=== PATIENT | male | born 1950 | race Caucasian/White ===

== ENCOUNTER 2018-01-24 16:07 | Observation (INO) | payer MEDICARE ==
[2018-01-24] MEDS ORDERED: ASPIRIN 81 MG CHEWABLE TABLET PO ONE (16:25)
[2018-01-24] MEDS ORDERED: 0.9 % SODIUM CHLORIDE 1000ML 1,000 ML IV PRN (16:25)
--- NOTE | 2018-01-24 16:36 | Emergency Department Record ---
History of Present Illness - General Chief Complaint: Abdominal Pain Stated Complaint: STOMACHE PAIN/LT ARM ACHE Time Seen by Provider: 01/24/18 16:13 Source: Patient Mode of Arrival: Ambulatory Limitations: No limitations - History of Present Illness Initial Comments: Pt from home where he was outdoors using a hoe in his garden. He felt sudden pain in his mid upper abdomen and pain with "heaviness" to his left arm. he had no CP, JENNIFER, nausea, or diaphoresis. Pt has hx of GA 3 years ago with stent placed at that time. Hx HTN, no DM. Non smoker. Hx of issues with "gastritis " treated over the past year. Now AP is resolved and arm is at a 2 of 10 pain. Max at home was a 6 of 10. No recent illness, fever, cough. Onset/Timin -: Hour(s) Location: Epigastric Radiation: None Migration to: No migration Severity: Mild Severity scale (1-10): 6 Quality: Aching Consistency: Constant Improves With: Nothing Worsens With: Nothing Associated Symptoms: Other (left arm pain) - Related Data Allergies Allergy/AdvReac Type Severity Reaction Status Date / Time Egg Derived Allergy Unknown HYPERSENSIT Verified 07/04/16 15:34 IVITY Travel Screening - Travel/Exposure Within Last 30 Days Have you traveled within the last 30 days?: No Review of Systems Constitutional: Denies: Chills, Fever Eyes: Denies: Eye pain, Vision change ENT: Denies: Congestion, Throat pain Respiratory: Denies: Cough, Dyspnea, Hemoptysis Cardiovascular: Denies: Arrhythmia, Chest pain, Edema Endocrine: Denies: Fatigue Gastrointestinal: Reports: As per HPI. Denies: Diarrhea, Nausea, Vomiting Genitourinary: Denies: Dysuria, Frequency Musculoskeletal: Denies: Arthralgia Skin: Denies: Bruising, Rash Neurological: Denies: Abnormal gait, Headache, Tingling Psychiatric: Denies: Anxiety Hematological/Lymphatic: Denies: Anemia Past Medical History - SOCIAL HISTORY Smoking Status: Former smoker - RESPIRATORY Hx Respiratory Disorders: Yes Hx Bronchitis: Yes - CARDIOVASCULAR Hx Cardio Disorders: Yes Hx Hypertension: Yes - NEURO Hx Neuro Disorders: No - GI Hx GI Disorders: No - Hx Genitourinary Disorders: No - ENDOCRINE Hx Diabetes: No Hx Thyroid Disease: No - MUSCULOSKELETAL Hx Musculoskeletal Disorders: Yes Hx Arthritis: Yes - PSYCH Hx Psych Problems: No - HEMATOLOGY/ONCOLOGY Hx Hematology/Oncology Disorders: No Family Medical History Any Significant Family History?: No Physical Exam - General General Appearance: Alert, Oriented x3, Cooperative, No acute distress - Head Head exam: Atraumatic Head exam detail: Abrasion - Eye Eye exam: Normal appearance, PERRL, EOMI. negative: Nystagmus - ENT ENT exam: Normal exam, Mucous membranes moist, Normal external ear exam, Normal orophraynx, TM's normal bilaterally - Neck Neck exam: Normal inspection. negative: Thyromegaly - Respiratory Respiratory exam: Normal lung sounds bilaterally. negative: Rhonchi, Wheezes - Cardiovascular Cardiovascular Exam: Regular rate, Normal rhythm. negative: Diastolic murmur, Irregular rhythm, Systolic murmur - GI/Abdominal GI/Abdominal exam: Soft, Normal bowel sounds. negative: Guarding, Mass, Rebound (MIld upper mid abd pain to deep palation. ), Rigid - Rectal Rectal exam: Deferred - exam: Deferred - Extremities Extremities exam: Normal inspection. negative: Tenderness - Back Back exam: Reports: Normal inspection - Neurological Neurological exam: Alert, Normal gait, Oriented X3 - Psychiatric Psychiatric exam: Normal affect, Normal mood - Skin Skin exam: Normal color. negative: Rash Course Vital Signs 01/24/18 16:16 Temperature 98.5 F Pulse Rate [ 88 Pulse Ox Probe] Respiratory 16 Rate Blood Pressure 149/111 [Left Arm] Pulse Ox 96 - Reevaluation(s) Reevaluation #1: 01/24/18 18:37 Pt without AP at this time. Labs normal including Trop. D Dimer elevated byut CTA neg for PE> Continues to have L arm pain. 01/24/18 18:41 Dr. Walker not available. Spoke with Dr. Loyd and accepts. Procedures - EKG Initial Date: 01/24/18 ( ) Time: 16:31 EKG: No Acute Changes (no change from 16) Medical Decision Making - Lab Data Result diagrams: 01/24/18 16:35 01/24/18 16:35 Disposition Disposition: Admit Clinical Impression: Anginal equivalent, Arm pain, left Disposition: Still a Patient at [facility] Decision to Admit: Admit from ER Decision to Admit Date: 01/24/18 Decision to Admit Time: 18:42 Condition: (3) Guarded Forms: Patient Portal Access Time of Disposition: 18:42 Quality - Quality Measures Quality Measures: N/A - Blood Pressure Screening View Details: Yes Does Patient Have Any of the Following: Active Dx of HTN Blood Pressure Classification: Normal BP Reading Systolic Measurement: 109 Diastolic Measurement: 71 Screening for High Blood Pressure: Patient Exclusion, Hx of HTN [G9744]
[2018-01-24 16:40] LABS: BASO % 0.2 % (0-6); EOS % 1.6 % (0-6); HEMATOCRIT 47.4 % (42.0-52.0); HEMOGLOBIN 16.4 gm/dl (14.0-18.0); LYMPH % 15.9 % (16-45); MEAN CELL VOLUME 91.2 fl (81-97); MEAN CORPUSCULAR HEMOGLOBIN 31.5 pg (27-33); MEAN CORPUSCULAR HGB CONC 34.6 g/dl (32-36); MEAN PLATELET VOLUME 9.4 fl (7.4-10.4); MONO % 11.3 % (0-9); PLATELET COUNT 256 K/uL (130-400); RED CELL DISTRIBUTION WIDTH 12.2 % (11.5-14.5); WHITE BLOOD COUNT W/O DIFF 8.6 K/uL (4.2-12.2)
[2018-01-24 16:49] LABS: BLOOD UREA NITROGEN 16 mg/dL (8-23); CREATININE 0.9 mg/dL (0.7-1.2); EST GLOMERULAR FILTRATION RATE > 60 mL/min
[2018-01-24 16:50] LABS: TOTAL PROTEIN 6.4 g/dL (6.6-8.7)
[2018-01-24 16:52] LABS: GLUCOSE,RANDOM 97 mg/dL (74-109)
[2018-01-24 16:54] LABS: PARTIAL THROMBOPLASTIN TIME 27.8 SECONDS (24.5-39.1); PROTHROMBIN TIME (PATIENT) 10.9 SECONDS (9.5-12.1)
[2018-01-24 16:55] LABS: ALBUMIN 4.3 g/dL (4.0-5.0); ALKALINE PHOSPHATASE 54 U/L (40-129); ALT/SGPT 31 U/L (<41); AST/SGOT 21 U/L (10.0-50.0)
[2018-01-24] MEDS ORDERED: NITROGLYCERIN 0.4MG SL TABLET #25 BTL SL ONE (17:22)
[2018-01-24 17:23] LABS: URINE APPEARANCE CLEAR; URINE BILIRUBIN NEGATIVE (NEGATIVE); URINE BLOOD NEGATIVE (NEGATIVE); URINE COLOR YELLOW; URINE GLUCOSE (UA) NEGATIVE (NEGATIVE); URINE KETONE NEGATIVE (NEGATIVE); URINE LEUKOCYTE ESTERASE NEGATIVE (NEGATIVE); URINE NITRITE NEGATIVE (NEGATIVE); URINE PROTEIN NEGATIVE (NEGATIVE); URINE UROBILINOGEN 0.2 E.U./dL (0.20 - 1.00)
[2018-01-24] MEDS: CARVEDILOL 3.125 MG TABLET PO SCH (22:14)
--- NOTE | 2018-01-25 07:44 | CT ANGIOGRAM REPORT ---
EXAM: CT ANGIOGRAM OF THE CHEST HISTORY: LEFT ARM PAIN. TACHYCARDIA. DIZZINESS. TECHNIQUE: Standard CT angiographic technique with IV contrast of the chest was completed with coronal and sagittal post processed images. Comparison: None. Encounter: Initial. FINDINGS: The mediastinum displays atherosclerosis of the aorta. I do not see evidence of aortic dissection. No evidence of aortic aneurysm. The pulmonary arteries are borderline prominent proximally. A degree of pulmonary artery hypertension is not excluded. The pulmonary arteries are well opacified. I do not see filling defect. No contrast, disruption is identified. No evidence to suggest pulmonary embolism is seen. The heart is borderline prominent. I do not see evidence of right heart strain. No abnormal pericardial fluid collections are identified. Small hilar lymph nodes are seen. Advanced coronary artery atherosclerotic disease is identified. The lungs display likely evidence of mild emphysematous disease. Basilar areas of atelectasis. I do not see evidence of pneumothorax. No gross lobar infiltrates or large effusions. There is a tiny 3 mm lung nodule in the region of the right middle lobe. Small likely calcified granuloma in the posterior right lung field. The right middle lobe lung nodule could also be a small calcified nodule, it is somewhat too small to accurately characterize. As follows there is an irregular density in the left upper lobe measuring about 8 mm in size adjacent to one of the pulmonary arteries. This could represent a small pulmonary nodule. Minimal pleural areas of calcification. No suspicious lung nodule or mass lesion. The upper abdomen displays no acute process. Axillary regions of the chest wall and visualized portions of the thyroid gland appear intact. The spinal column displays degenerative disease. No gross bony destructive process. IMPRESSION: 1. I DO NOT SEE EVIDENCE OF PULMONARY ARTERY EMBOLISM AND NO EVIDENCE OF AORTIC DISSECTION. SEVERE CORONARY ARTERY DISEASE IS IDENTIFIED. 2. THE LUNGS DISPLAY EMPHYSEMATOUS LUNG DISEASE. THE PULMONARY ARTERIES ARE BORDERLINE PROMINENT AND MAY REPRESENT A DEGREE OF PULMONARY ARTERY HYPERTENSION. NO INFILTRATES OR LARGE EFFUSIONS. 3. THERE IS AN 8 MM LEFT UPPER LOBE PULMONARY NODULE. EARLY MALIGNANCY IS NOT COMPLETELY EXCLUDED. THREE MONTH MONTH FOLLOW-UP IS RECOMMENDED. OTHER SMALL RIGHT LUNG PULMONARY NODULES LIKELY BENIGN ONLY MEASURING UPWARDS OF ABOUT 3 MM IN SIZE. 4. MILD BRONCHIAL THICKENING WITH EMPHYSEMATOUS CHANGES. THIS MAY REPRESENT CHRONIC BRONCHITIS. A DEGREE OF ACUTE INFLAMMATORY PROCESS IS NOT COMPLETELY EXCLUDED. 5. OTHER CHRONIC CHANGES ABOVE. NO OTHER ACUTE PROCESS IDENTIFIED. JOB NUMBER: [id number] [facility]
[2018-01-25] MEDS: PANTOPRAZOLE SODIUM 40 MG TABLET PO SCH ×2 (07:59→10:01)
[2018-01-25] MEDS ORDERED: LISINOPRIL 5 MG TABLET PO SCH (10:00)
[2018-01-25] MEDS ORDERED: ASPIRIN 81 MG TABEC PO SCH (10:00)
[2018-01-25] MEDS ORDERED: ATORVASTATIN 20 MG TABLET PO SCH (10:00)
[2018-01-25] MEDS: CARVEDILOL 3.125 MG TABLET PO SCH (10:04)
--- NOTE | 2018-01-25 10:41 | Discharge Note ---
VTE H&P Assessment - Risk for VTE Risk for VTE: No Risk Level: Very Low Risk Assessment Date: 01/25/18 Risk Assessment Time: 10:41 VTE Orders Placed or Will Be Placed: No VTE Reason for No Prophylaxis: Not Indicated (patient going home) Discharge Medications - Discharge Medications Prescriptions: Naproxen [Naprosyn] 500 mg PO BID #20 tablet Home Medications: Ambulatory Orders Aspirin 81 mg PO DAILY tab.chew 08/18/15 [Last Taken 1 Day Ago ~07/03/16] Atorvastatin Calcium 40 mg PO DAILY tab 08/18/15 [Last Taken 1 Day Ago ~] Carvedilol 3.125 mg PO BID tab 08/18/15 [Last Taken 1 Day Ago ~07/03/16] Nitroglycerin 0.4 mg SL Q5MIN PRN 08/18/15 [Last Taken 1 Day Ago ~07/03/16] Lisinopril [Zestril] 10 mg PO DAILY 08/22/15 [Last Taken 1 Day Ago ~07/03/16] Omeprazole 20 mg PO DAILY cap 10/17/15 [Last Taken 1 Day Ago ~07/03/16] Naproxen [Naprosyn] 500 mg PO BID #20 tablet 01/25/18 [Last Taken Unknown] Discharge Note - Date Date of Discharge Note: 01/25/18 Condition: (3) Guarded Additional Instructions: follow up with Dr. Walker in 5 days on tuesdayJanuary 29 naprosyn twice a day for his left wrist pain follow up with Dr. Lyles in 1-2 weeks for a stress test activity walking only till his stress test is done Forms: Patient Portal Access
--- NOTE | 2018-01-25 12:31 | Discharge Summary ---
DATE: 01/25/2018 DISCHARGE DIAGNOSES: 1. Atypical chest pain. 2. Myocardial infarction ruled out. 3. Coronary artery disease. 4. Musculoskeletal left arm pain, left wrist pain, most likely from hoeing. 5. An incidental pulmonary nodule found on CTA which was negative for pulmonary embolism. D-dimer was slightly elevated. Will follow up with a 3-month CT scan. 6. History of hypertension. 7. History of hypercholesterolemia. 8. History of gastroesophageal reflux disease. ATTENDING PHYSICIAN: Jeffrey Walker DO REASON FOR HOSPITALIZATION: This patient was seen in the emergency department by Dr. Irizarry with epigastric discomfort which lasted for about 30 minutes which was gone upon arrival to the ER. He has had some left arm pain which was sharp in nature, reproducible with palpation of the wrist and movement of the arm. He was admitted to the hospital for serial cardiac enzymes because of his previous history of an IA about 2-3 years ago. SIGNIFICANT FINDINGS: Cardiac enzymes x3 were negative. Troponin Ts and EKG showing no acute changes. There was some T-wave inversion and I and aVL, V4, V5, and V6 which was similar to previous EKGs done in 2015 and 2016. His CTA because of a D-dimer was slightly elevated in the emergency department was negative for PE but did show an incidental 8 mm nodule which will need a followup CT to determine stability and possible further evaluation. HOSPITAL COURSE: He has been pain free. No chest pain. Does have left wrist pain on palpation and movement of his forearm. CONDITION ON DISCHARGE: Improved. DISCHARGE INSTRUCTIONS: Follow up with Dr. Walker in 5 days. Follow up with Dr. Lyles, his finance and administration manager, in 1 week for a stress test. Only walking exercise until he has had his stress test done. Continue his home medications. JO ANN
--- NOTE | 2018-01-25 12:31 | History and Physical Report ---
DATE: 01/25/2018 at 10 a.m. CHIEF COMPLAINT: Chest pain, left arm pain. HISTORY OF PRESENT ILLNESS: This 67-year-old male was working in the [employer]. The temperature was 90 degrees outside. He went inside. He developed some nausea, epigastric discomfort, and also some left arm pain which he said was sharp radiating down the left arm. Currently at my examination, he was still having some left wrist pain worse with palpation. He also had left forearm pain with palpation and no chest pain at this time. He was seen in the emergency department by Dr. Irizarry and admitted to the hospital for serial cardiac enzymes. His scarrer is Dr. Jessee Lyles out of [place] through the [facility]. He has not seen a scarrer in a couple of years. He said he is doing well. He had an OH 3 years ago. He also had a CTA in the emergency department because his D-dimer was slightly elevated. No signs of a PE. There is a pulmonary nodule which requires a 3-month followup according to the radiologist. It is 8 mm in size. Indeterminate as to what it is. His EKG showing no acute changes in the emergency department and his repeat EKG had T-wave inversions in I and aVL, which is similar to a previous EKG with V4, V5, and V6 had T-wave inversions, which is also similar to the EKG in 2016. Cardiac enzymes were normal x3 and he is not having any chest pain at this time. PAST MEDICAL HISTORY: Hypercholesterolemia, hypertension, coronary artery disease, GERD. He is an ex-smoker, stopped in 1999. He has arthritis. PAST SURGICAL HISTORY: Appendectomy, cholecystectomy, tonsil and adenoid and sinus surgery. MEDICATIONS: 1. Omeprazole 20 mg daily. 2. Nitroglycerin sublingual p.r.n. 3. Lisinopril 10 mg daily. 4. Carvedilol 3.125 b.i.d. 5. Lipitor 40 mg daily. 6. Aspirin 81 mg daily. ALLERGIES: EGGS. FAMILY/PSYCHOSOCIAL HISTORY: Unremarkable. REVIEW OF SYSTEMS: HEENT: No upper respiratory infection symptoms, cough, cold, or congestion. Cardiovascular: See chief complaint. He has coronary artery disease with previous OH 2-3 years ago. Respiratory: He was a smoker. He has some signs of COPD. He has an abnormal CTA with a pulmonary nodule 8 mm and needs a followup CT in 3 months. Gastrointestinal: He had some nausea and epigastric discomfort that lasted about 15 minutes after working outside in the yard. Genitourinary: No dysuria, hematuria, frequency, or burning on urination. Musculoskeletal: He does have arthritis in joints, back especially. Neurological: No CVA, paralysis, or paresthesias. Endocrine: No diabetes or thyroid disease. Integument: No rash, ulcers, change in moles, or yellow skin. PHYSICAL EXAMINATION: VITALS: Height 5 feet 10 inches, weight 208 pounds. Currently temperature 97.6, pulse 65, blood pressure 114/69, respiratory rate 17, pulse ox 98% on room air. HEENT: Pupils are equal, round, and reactive to light and accommodation. Extraocular muscles are intact. Throat is clear. Nose is clear. Tympanic membranes are armstrong. NECK: Supple. No jugular venous distention. No hepatojugular reflux. No carotid bruits. Thyroid is smooth. CARDIOVASCULAR: Regular rate and rhythm without murmurs, clicks, rubs, or gallops. RESPIRATORY: Clear to auscultation and percussion. ABDOMEN: Soft, nontender. No hepatosplenomegaly, no masses, no tenderness. Bowel sounds are active. EXTREMITIES: No pitting edema. No cyanosis, no clubbing. Full range of motion. Peripheral pulses are good. BREASTS: Normal male breasts. RECTAL: Exam deferred. GENITALIA: Deferred. NEUROLOGIC: Cranial nerves II-XII intact. No gross defects. Sensation normal, strength normal. Deep tendon reflexes equal bilaterally with Babinski negative. MENTAL STATUS: Alert and oriented x3. IMPRESSION: 1. Epigastric pain with left arm pain. 2. History of coronary artery disease. 3. Myocardial infarction ruled out by cardiac enzymes and EKGs. 4. Left arm musculoskeletal pain in the left wrist and left forearm, most likely secondary from hoeing. 5. History of hypertension. 6. History of hypercholesterolemia. 7. History of gastroesophageal reflux disease. PLAN: Serial cardiac enzymes were negative. EKGs with no acute changes. We will discharge the patient and have him follow up with Dr. Lyles at the cardiology group at [facility] in the next week to have a stress test done. Will follow up in the office on Tuesday to determine if any other problems develop and to follow up on his pulmonary nodule. The patient is to follow up in the emergency department if he has more problems. JO ANN
== END 2018-01-25 12:15 | disposition home or self-care (01) ==
LOC: ER 16:07 → MEDSURG 19:32
PROVIDERS: ADMIT Emergency Medicine; ATTEND Emergency Medicine
DX: M79.622 Pain in left upper arm (principal); I10 Essential (primary) hypertension; K21.9 Gastro-esophageal reflux disease without esophagitis; I25.2 Old myocardial infarction; E78.00 Pure hypercholesterolemia, unspecified; I25.10 Atherosclerotic heart disease of native coronary artery without angina pectoris; Z87.891 Personal history of nicotine dependence; M19.90 Unspecified osteoarthritis, unspecified site
CPT/HCPCS: 85025; 85730; 85610; 80053; 81003; 84484 ×2; 85379; 71275; 94760; 93005 ×2; 93010 ×2; G0378 ×2; Q9967; 99285

== ENCOUNTER 2018-02-10 17:13 | Emergency (ER) | payer MEDICARE ==
[2018-02-10] MEDS ORDERED: HYOSCYAMINE SULFATE ODT 0.125 MG TAB.SUBL SL ONE (18:07)
[2018-02-10] MEDS ORDERED: KETOROLAC 30 MG/ML VIAL IVP ONE (18:07)
--- NOTE | 2018-02-10 18:11 | Emergency Department Record ---
History of Present Illness - General Chief Complaint: Abdominal Pain Time Seen by Provider: 02/10/18 18:06 Source: Patient Mode of Arrival: Ambulatory Limitations: No limitations - History of Present Illness Initial Comments: 67 yo male presents to ED for evaluation of LLQ pain that began 2 days ago. Patient reports decreased appetite, denies fevers, chills, vomiting, change in stools, or urinary symptoms. Patient denies a history of similar symptoms, does report a previous history of appendectomy and cholecystectomy. MD Complaint: Abdominal pain Onset/Timin -: Days(s) Location: LUQ, LLQ Migration to: No migration Severity scale (1-10): 7 Quality: Aching, Cramping Consistency: Constant Improves With: Nothing Worsens With: Nothing Associated Symptoms: Nausea - Related Data Previous Rx's Medication Instructions Recorded Naproxen [Naprosyn] 500 mg PO BID #20 tablet 01/25/18 Ciprofloxacin HCl [Cipro] 500 mg PO Q12HR #19 tablet 02/10/18 Metronidazole [Flagyl] 500 mg PO TID #29 tablet 02/10/18 Allergies Allergy/AdvReac Type Severity Reaction Status Date / Time Egg Derived Allergy Unknown HYPERSENSIT Verified 07/04/16 15:34 IVITY Travel Screening - Travel/Exposure Within Last 30 Days Have you traveled within the last 30 days?: No - Travel/Exposure Within Last Year Have you traveled outside the [place] in the last year?: No - Additonal Travel Details Have you been exposed to anyone with a communicable illness?: No - Travel Symptoms Symptom Screening: None Review of Systems Constitutional: Denies: Chills, Fever, Malaise, Night sweats Eyes: Denies: Eye discharge, Eye pain ENT: Denies: Congestion, Ear pain, Epistaxis Respiratory: Denies: Cough, Dyspnea Cardiovascular: Denies: Chest pain, Dyspnea on exertion Endocrine: Denies: Fatigue, Heat or cold intolerance Gastrointestinal: Reports: Abdominal pain, Nausea. Denies: Vomiting Genitourinary: Denies: Testicular pain, Testicular mass Musculoskeletal: Denies: Arthralgia, Back pain Skin: Denies: Bruising, Change in color Neurological: Denies: Abnormal gait, Confusion, Headache, Tingling Psychiatric: Denies: Anxiety Hematological/Lymphatic: Denies: Anemia, Blood Clots Past Medical History - SOCIAL HISTORY Smoking Status: Former smoker Alcohol Use: None Drug Use: None - RESPIRATORY Hx Respiratory Disorders: Yes Hx Bronchitis: Yes - CARDIOVASCULAR Hx Cardio Disorders: Yes Hx Heart Attack: Yes Hx Hypertension: Yes Comment:: stents - NEURO Hx Neuro Disorders: No - GI Hx GI Disorders: No - Hx Genitourinary Disorders: No - ENDOCRINE Hx Endocrine Disorders: No Hx Diabetes: No Hx Thyroid Disease: No - MUSCULOSKELETAL Hx Musculoskeletal Disorders: Yes Hx Arthritis: Yes - PSYCH Hx Psych Problems: No - HEMATOLOGY/ONCOLOGY Hx Hematology/Oncology Disorders: No Family Medical History Any Significant Family History?: No Physical Exam - General General Appearance: Alert, Oriented x3, Cooperative, Moderate distress Limitations: No limitations - Head Head exam: Atraumatic, Normocephalic, Normal inspection Head exam detail: negative: Abrasion, Contusion, Blake's sign, General tenderness, Hematoma, Laceration - Eye Eye exam: Normal appearance. negative: Conjunctival injection, Periorbital swelling, Periorbital tenderness, Scleral icterus - ENT Ear exam: negative: Auricular hematoma, Auricular trauma Nasal Exam: negative: Active bleeding, Discharge, Dried blood, Foreign body Mouth exam: negative: Drooling, Laceration, Muffled voice, Tongue elevation - Neck Neck exam: Normal inspection. negative: Meningismus, Tenderness - Respiratory Respiratory exam: Normal lung sounds bilaterally. negative: Respiratory distress, Rhonchi, Stridor, Wheezes - Cardiovascular Cardiovascular Exam: Regular rate, Normal rhythm, Normal heart sounds - GI/Abdominal GI/Abdominal exam: Soft, Tenderness (TTP LLQ on examination, no rebound, guarding, or peritoneal signs on examination.). negative: Rebound, Rigid - Rectal Rectal exam: Deferred - exam: Deferred - Extremities Extremities exam: Normal inspection. negative: Calf tenderness, Pedal edema, Tenderness - Back Back exam: Denies: CVA tenderness (R), CVA tenderness (L) - Neurological Neurological exam: Alert, Normal gait, Oriented X3 - Psychiatric Psychiatric exam: Normal affect, Normal mood - Skin Skin exam: Normal color. negative: Abrasion Type of lesion: negative: abrasion Course Vital Signs 02/10/18 17:14 Temperature 99.4 F Pulse Rate 67 Respiratory 20 Rate Blood Pressure 137/70 Pulse Ox 96 - Reevaluation(s) Reevaluation #1: 02/10/18 19:17 Laboratory studies were reviewed and are grossly unremarkable for an acute process. Awaiting CT imaging for further evaluation of the patient's abdominal pain symptoms. Reevaluation #2: 02/10/18 21:03 CT Abdomen and Pelvis: Findings c/w Sigmoid Diverticulitis DJD No free air or Free fluid present Patient was updated on all results, Cipro and Flagyl ordered in addition to Ofirmev for his returning discomfort symptoms. Patient and his SO verbalize understanding of all instructions, and appear stable for outpatient treatment of diverticulitis. Medical Decision Making - Lab Data Result diagrams: 02/10/18 18:00 02/10/18 18:00 Disposition Disposition: Discharge Clinical Impression: Diverticulitis Disposition: Home, Self-Care Condition: (2) Stable Instructions: Diverticulitis (ED) Additional Instructions: Return to ED if your symptoms worsen or if you have any concerns. Flagyl and Cipro as directed. Follow-up with your family doctor in 3-5 days as directed. Prescriptions: Ciprofloxacin HCl [Cipro] 500 mg PO Q12HR #19 tablet Metronidazole [Flagyl] 500 mg PO TID #29 tablet Forms: Patient Portal Access Time of Disposition: 21:05 Quality - Quality Measures Quality Measures: N/A - Blood Pressure Screening Does Patient Have Any of the Following: No Blood Pressure Classification: Pre-Hypertensive BP Reading Systolic Measurement: 137 Diastolic Measurement: 70 Screening for High Blood Pressure: < Pre-Hypertensive BP, F/U Documented > [ G8950] Pre-Hypertensive Follow-up Interventions: Referral to alternative/primary care provider.
[2018-02-10] MEDS ORDERED: 0.9 % SODIUM CHLORIDE 1000ML 1,000 ML IV SCH (18:15)
[2018-02-10 18:41] LABS: HEMATOCRIT 50.2 % (42.0-52.0); HEMOGLOBIN 17.3 gm/dl (14.0-18.0); MEAN CELL VOLUME 91.4 fl (81-97); MEAN CORPUSCULAR HEMOGLOBIN 31.5 pg (27-33); MEAN CORPUSCULAR HGB CONC 34.5 g/dl (32-36); MEAN PLATELET VOLUME 10.2 fl (7.4-10.4); PLATELET COUNT 254 K/uL (130-400); RED BLOOD COUNT 5.49 M/uL (4.40-5.70); RED CELL DISTRIBUTION WIDTH 12.3 % (11.5-14.5); WHITE BLOOD COUNT W/O DIFF 9.5 K/uL (4.2-12.2)
[2018-02-10 18:54] LABS: PLATELET ESTIMATE NORMAL (NORMAL)
[2018-02-10 18:59] LABS: BLOOD UREA NITROGEN 15 mg/dL (8-23); CREATININE 0.8 mg/dL (0.7-1.2); EST GLOMERULAR FILTRATION RATE > 60 mL/min
[2018-02-10 19:00] LABS: TOTAL PROTEIN 7.3 g/dL (6.6-8.7)
[2018-02-10 19:02] LABS: GLUCOSE,RANDOM 87 mg/dL (74-109)
[2018-02-10 19:05] LABS: ALB/GLOB RATIO 1.8 (1.1-1.8); ALBUMIN 4.7 g/dL (4.0-5.0); ALKALINE PHOSPHATASE 68 U/L (40-129); ALT/SGPT 38 U/L (<41); AST/SGOT 27 U/L (10.0-50.0); LIPASE 38 U/L (13-60)
[2018-02-10 19:15] LABS: URINE APPEARANCE CLEAR; URINE BILIRUBIN NEGATIVE (NEGATIVE); URINE BLOOD NEGATIVE (NEGATIVE); URINE COLOR YELLOW; URINE GLUCOSE (UA) NEGATIVE (NEGATIVE); URINE KETONE NEGATIVE (NEGATIVE); URINE LEUKOCYTE ESTERASE NEGATIVE (NEGATIVE); URINE NITRITE NEGATIVE (NEGATIVE); URINE PROTEIN NEGATIVE (NEGATIVE); URINE UROBILINOGEN 0.2 E.U./dL (0.20 - 1.00)
[2018-02-10] MEDS ORDERED: ACETAMINOPHEN 1,000 MG/100 ML BTL IVPB ONE (20:56)
[2018-02-10] MEDS ORDERED: CIPROFLOXACIN HCL 500 MG TABLET PO ONE (21:02)
[2018-02-10] MEDS ORDERED: METRONIDAZOLE 250 MG TABLET PO ONE (21:02)
--- NOTE | 2018-02-12 19:45 | CT SCAN REPORT ---
EXAM: CT SCAN ABDOMEN/PELVIS W CONTRAST HISTORY: LEFT LOWER QUADRANT PAIN WITH NAUSEA AND LOOSE STOOLS FOR TWO DAYS. PRIOR CHOLECYSTECTOMY AND APPENDECTOMY. TECHNIQUE: Axial CT scan of the abdomen and pelvis performed with IV contrast but without oral contrast at the referring physician's request. Please see the medical record for IV contrast specifics. COMPARISON: CT abdomen and pelvis 10/09/09. FINDINGS: Surgical clips in the gallbladder fossa again seen consistent with cholecystectomy. Appendix not identified consistent with the surgical history as well. No definite, splenic, adrenal, pancreatic, or right renal mass identified. Single small low-attenuation mass left kidney also present previously, previously measured at about 7 mm and measuring about 8 mm today consistent with a tiny cyst. There also appear to be currently nonobstructing intrarenal calculi in the lower pole of both kidneys. No hydronephrosis or ureteral calculus seen on either side. Prostate appears enlarged measuring about 6.1 cm in transverse, by 5.4 cm in AP diameter and extends up into the floor of the bladder. Correlation with physical exam and serum PSA is suggested. There is probably a small right inguinal hernia containing adipose tissue but no bowel. Evaluation of the bowel considerably limited without oral contrast. There is some mild scattered diverticulosis with no definite diverticulitis. There does appear to be some mild inflammatory change in the region of the upper sigmoid colon and particularly on the coronal reformatted image, there does appear to be a single mildly prominent diverticulum in the this region as well and these findings likely represent mild changes of acute diverticulitis. No peridiverticular abscess evident. No definite free intraperitoneal air or free intraperitoneal fluid identified. Facet joint arthropathy in the lower lumbar spine. Prominent spurring in the lower thoracic spine. IMPRESSION: 1. COUPLE OF SMALL NONOBSTRUCTING CALCULI IN THE LOWER POLE OF BOTH KIDNEYS BUT NO HYDRONEPHROSIS OR URETERAL CALCULUS EVIDENT. 2. POST-OP CHOLECYSTECTOMY AND APPENDECTOMY. 3. SMALL LEFT RENAL CYST. 4. MILD SCATTERED DIVERTICULOSIS IN THE COLON AND PROBABLY SOME MINOR CHANGES OF ACUTE SIGMOID DIVERTICULITIS IN THE UPPER SIGMOID COLON. 5. SMALL RIGHT INGUINAL HERNIA CONTAINING ADIPOSE TISSUE BUT NO BOWEL. 6. ENLARGED PROSTATE CONTAINING SOME CALCIFICATION. CORRELATION WITH PHYSICAL EXAM AND SERUM PSA IS SUGGESTED. 7. DEGENERATIVE CHANGES LOWER LUMBAR SPINE. JOB [facility]BER: [id number] [facility]
== END 2018-02-10 21:27 | disposition home or self-care (01) ==
LOC: ER 17:13
DX: K57.32 Diverticulitis of large intestine without perforation or abscess without bleeding (principal); I10 Essential (primary) hypertension; Z87.891 Personal history of nicotine dependence
CPT/HCPCS: 99284 ×2; 96374; 83690; 80053; 81003; 85027; 74177; Q9967; J1980; J1885; J7030

== ENCOUNTER 2018-06-18 10:12 | Emergency (ER) | payer MEDICARE ==
--- NOTE | 2018-06-18 10:46 | Emergency Department Record ---
History of Present Illness - General Chief Complaint: Chest Pain Stated Complaint: CHEST TIGHTNESS Time Seen by Provider: 06/18/18 10:35 Source: Patient Mode of Arrival: Ambulatory Limitations: No limitations - History of Present Illness Initial Comments: pt had neck pain, chest pain and numbness in his hands which has now resolved. he had this once before and went to the hospital with it and no cause was found.. he states he popped a couple of aspirin. MD Complaint: Chest pain Onset/Timin -: Minutes(s) Onset: Other (doing dishes) Pain Location: Substernal Pain Radiation: None Severity scale (1-10): 6 Quality: Tightness Consistency: Now resolved Improves With: Nothing Worsens With: Nothing Treatments Prior to Arrival: Aspirin - Related Data Previous Rx's Medication Instructions Recorded Naproxen [Naprosyn] 500 mg PO BID #20 tablet 01/25/18 Allergies Allergy/AdvReac Type Severity Reaction Status Date / Time Egg Derived Allergy Unknown HYPERSENSIT Verified 06/18/18 10:16 IVITY Travel Screening - Travel/Exposure Within Last 30 Days Have you traveled within the last 30 days?: No Review of Systems Reviewed: No additional complaints except as noted below Constitutional: Reports: As per HPI. Denies: Chills, Fever, Malaise, Night sweats, Weakness, Weight change Eyes: Reports: As per HPI. Denies: Eye discharge, Eye pain, Photophobia, Vision change ENT: Reports: As per HPI. Denies: Congestion, Dental pain, Ear pain, Epistaxis , Hearing loss, Throat pain Respiratory: Reports: As per HPI. Denies: Cough, Dyspnea, Hemoptysis, Stridor, Wheezes Cardiovascular: Reports: As per HPI. Denies: Arrhythmia, Chest pain, Dyspnea on exertion, Edema, Murmurs, Orthopnea, Palpitations, Paroxysmal nocturnal dyspnea, Rheumatic Fever, Syncope Endocrine: Reports: As per HPI. Denies: Fatigue, Heat or cold intolerance, Polydipsia, Polyuria Gastrointestinal: Reports: As per HPI. Denies: Abdominal pain, Constipation, Diarrhea, Hematemesis, Hematochezia, Melena, Nausea, Vomiting Genitourinary: Reports: As per HPI. Denies: Dysuria, Frequency, Hematuria, Incontinence, Retention, Testicular pain, Testicular mass, Urgency Musculoskeletal: Reports: As per HPI. Denies: Arthralgia, Back pain, Gout, Joint swelling, Myalgia, Neck pain Skin: Reports: As per HPI. Denies: Bruising, Change in color, Change in hair/ nails, Lesions, Pruritus, Rash Neurological: Reports: As per HPI. Denies: Abnormal gait, Confusion, Headache, Numbness, Paresthesias, Seizure, Tingling, Tremors, Vertigo, Weakness Psychiatric: Reports: As per HPI. Denies: Anxiety, Auditory hallucinations, Depression, Homicidal thoughts, Suicidal thoughts, Visual hallucinations Hematological/Lymphatic: Reports: As per HPI. Denies: Anemia, Blood Clots, Easy bleeding, Easy bruising, Swollen glands Past Medical History - SOCIAL HISTORY Smoking Status: Former smoker Alcohol Use: None Drug Use: None - RESPIRATORY Hx Respiratory Disorders: Yes Hx Bronchitis: Yes - CARDIOVASCULAR Hx Cardio Disorders: Yes Hx Heart Attack: Yes Hx Hypertension: Yes Comment:: stents, high cholesterol - NEURO Hx Neuro Disorders: No - GI Hx GI Disorders: Yes Hx Reflux: Yes - Hx Genitourinary Disorders: No - ENDOCRINE Hx Endocrine Disorders: No Hx Diabetes: No Hx Thyroid Disease: No - MUSCULOSKELETAL Hx Musculoskeletal Disorders: Yes Hx Arthritis: Yes - PSYCH Hx Psych Problems: No - HEMATOLOGY/ONCOLOGY Hx Hematology/Oncology Disorders: No Family Medical History Any Significant Family History?: No Physical Exam - General General Appearance: Alert, Oriented x3, Cooperative, Mild distress - Head Head exam: Normal inspection - Eye Eye exam: Normal appearance, PERRL, EOMI Pupils: Normal accommodation - ENT ENT exam: Normal exam, Mucous membranes moist, Normal external ear exam, Normal orophraynx Ear exam: Normal external inspection. negative: External canal tenderness Nasal Exam: Normal inspection. negative: Discharge, Sinus tenderness Mouth exam: Normal external inspection, Tongue normal Teeth exam: Normal inspection. negative: Dental caries Throat exam: Normal inspection. negative: Tonsillar erythema, Tonsillar exudate - Neck Neck exam: Normal inspection, Full ROM. negative: Tenderness - Respiratory Respiratory exam: Normal lung sounds bilaterally. negative: Respiratory distress - Cardiovascular Cardiovascular Exam: Regular rate, Normal rhythm, Normal heart sounds - GI/Abdominal GI/Abdominal exam: Soft, Normal bowel sounds. negative: Tenderness - Rectal Rectal exam: Deferred - exam: Deferred - Extremities Extremities exam: Normal inspection, Full ROM, Normal capillary refill. negative: Tenderness - Back Back exam: Reports: Normal inspection, Full ROM. Denies: Muscle spasm, Rash noted, Tenderness - Neurological Neurological exam: Alert, CN II-XII intact, Normal gait, Oriented X3 - Psychiatric Psychiatric exam: Normal affect, Normal mood - Skin Skin exam: Dry, Intact, Normal color, Warm Course Vital Signs 06/18/18 10:13 Temperature 98.1 F Pulse Rate 87 Respiratory 20 Rate Blood Pressure 166/102 Pulse Ox 96 - Reevaluation(s) Reevaluation #1: 06/18/18 15:21 pt has remained pain free Medical Decision Making - Lab Data Result diagrams: 06/18/18 10:20 06/18/18 10:20 Disposition Disposition: Discharge Clinical Impression: Chest pain Qualifiers: Chest pain type: unspecified Qualified Code(s): R07.9 - Chest pain, unspecified Disposition: Home, Self-Care Condition: (1) Good Instructions: Chest Pain (ED) Additional Instructions: follow up with family doctor and with freight delivery driver tomorrow. return sooner if worse. take aspirin 81mg daily. Forms: Patient Portal Access Quality - Quality Measures Quality Measures: N/A - Blood Pressure Screening Does Patient Have Any of the Following: Active Dx of HTN Blood Pressure Classification: Hypertensive Reading Systolic Measurement: 166 Diastolic Measurement: 102 Screening for High Blood Pressure: Patient Exclusion, Hx of HTN [G9744]
[2018-06-18 11:02] LABS: BASO % 0.3 % (0-6); EOS % 2.9 % (0-6); GRAN % 65.5 % (47-80); HEMATOCRIT 47.2 % (42.0-52.0); HEMOGLOBIN 16.3 gm/dl (14.0-18.0); LYMPH % 22.9 % (16-45); MEAN CELL VOLUME 90.4 fl (81-97); MEAN CORPUSCULAR HEMOGLOBIN 31.2 pg (27-33); MEAN CORPUSCULAR HGB CONC 34.5 g/dl (32-36); MEAN PLATELET VOLUME 10.3 fl (7.4-10.4); MONO % 8.4 % (0-9); PLATELET COUNT 265 K/uL (130-400); RED BLOOD COUNT 5.22 M/uL (4.40-5.70); RED CELL DISTRIBUTION WIDTH 12.5 % (11.5-14.5); WHITE BLOOD COUNT W/O DIFF 5.9 K/uL (4.2-12.2)
[2018-06-18 11:08] LABS: BLOOD UREA NITROGEN 11 mg/dL (8-23); CREATININE 0.8 mg/dL (0.7-1.2); EST GLOMERULAR FILTRATION RATE > 60 mL/min
[2018-06-18 11:09] LABS: TOTAL PROTEIN 6.7 g/dL (6.6-8.7)
[2018-06-18 11:11] LABS: GLUCOSE,RANDOM 164 mg/dL (74-109)
[2018-06-18 11:13] LABS: ALT/SGPT 32 U/L (<41)
[2018-06-18 11:14] LABS: ALB/GLOB RATIO 1.9 (1.1-1.8); ALBUMIN 4.4 g/dL (4.0-5.0); ALKALINE PHOSPHATASE 53 U/L (40-129); AST/SGOT 24 U/L (10.0-50.0); CREATINE PHOSPHOKINASE 172 U/L (39-308)
[2018-06-18 11:16] LABS: CKMB 2.6 ng/mL (<6.73); NTpro B-NATRIURETIC PEPTIDE 88.85 pg/mL (<125)
--- NOTE | 2018-06-19 14:15 | RADIOLOGY REPORT ---
EXAM: CHEST, TWO VIEWS HISTORY: DIFFICULTY IN BREATHING. TECHNIQUE: Frontal and lateral views of the chest were performed. FINDINGS: The heart size is normal. No pulmonary vascular congestion. No infiltrate or pleural effusion. The osseous structures are normal. IMPRESSION: NO ACUTE DISEASE PROCESS. JOB NUMBER: [id number] MTDD
== END 2018-06-18 15:36 | disposition home or self-care (01) ==
LOC: ER 10:12
DX: R07.2 Precordial pain (principal); R06.00 Dyspnea, unspecified; R20.0 Anesthesia of skin; I10 Essential (primary) hypertension; Z87.891 Personal history of nicotine dependence
CPT/HCPCS: 71046; 80053; 82550; 82553; 83880; 84484; 85025; 85379; 93005; 93010; 99284

== ENCOUNTER 2018-07-14 22:00 | Emergency (ER) | payer MEDICARE ==
[2018-07-14 22:32] LABS: BASO % 0.2 % (0-6); EOS % 2.4 % (0-6); GRAN % 53.8 % (47-80); HEMATOCRIT 49.7 % (42.0-52.0); HEMOGLOBIN 17.1 gm/dl (14.0-18.0); LYMPH % 34.2 % (16-45); MEAN CELL VOLUME 91.7 fl (81-97); MEAN CORPUSCULAR HEMOGLOBIN 31.5 pg (27-33); MEAN CORPUSCULAR HGB CONC 34.4 g/dl (32-36); MEAN PLATELET VOLUME 9.9 fl (7.4-10.4); MONO % 9.4 % (0-9); PLATELET COUNT 290 K/uL (130-400); RED BLOOD COUNT 5.42 M/uL (4.40-5.70); RED CELL DISTRIBUTION WIDTH 12.3 % (11.5-14.5); WHITE BLOOD COUNT W/O DIFF 8.8 K/uL (4.2-12.2)
--- NOTE | 2018-07-14 22:35 | Emergency Department Record ---
History of Present Illness - General Chief Complaint: Dizziness Stated Complaint: DIZZY/PAIN IN NECK/BACK Time Seen by Provider: 07/14/18 22:10 Source: Patient Mode of Arrival: Ambulatory Limitations: No limitations - History of Present Illness Initial Comments: 67 yo male presents to ED for evaluation of vertigo symptoms and left sided neck pain that started suddenly this evening after bending over to worm picker a glass in the kitchen. Patient reports that his symptoms have now improved, denies vertigo symptoms at this time. Patient reports similar symptoms 2 weeks ago. Patient denies recent head injury, focal weakness, numbness, or tingling symptoms. MD Complaint: Dizziness Onset/Timin -: Hour(s) Timing: Sudden onset History of Same: Yes History of Trauma: No Severity: Moderate Improves With: Rest Worsens With: Movement Associated Symptoms: Denies other symptoms - Cheikh Coma Scale Eye Response: (4) Open spontaneously Motor Response: (6) Obeys commands Verbal Response: (5) Oriented Cheikh Total: 15 - Related Data Allergies Allergy/AdvReac Type Severity Reaction Status Date / Time Egg Derived Allergy Unknown HYPERSENSIT Verified 06/18/18 10:16 IVITY Travel Screening - Travel/Exposure Within Last 30 Days Have you traveled within the last 30 days?: No - Travel Symptoms Symptom Screening: None Review of Systems Constitutional: Denies: Chills, Fever, Malaise, Night sweats Eyes: Denies: Eye discharge, Eye pain ENT: Denies: Congestion, Ear pain, Epistaxis Respiratory: Denies: Cough, Dyspnea Cardiovascular: Denies: Chest pain, Dyspnea on exertion Endocrine: Denies: Fatigue, Heat or cold intolerance Gastrointestinal: Reports: Abdominal pain. Denies: Nausea, Vomiting Genitourinary: Denies: Incontinence, Retention Musculoskeletal: Reports: Neck pain. Denies: Arthralgia, Back pain Skin: Denies: Bruising, Change in color Neurological: Reports: Vertigo. Denies: Abnormal gait, Confusion, Headache, Seizure Psychiatric: Denies: Anxiety Hematological/Lymphatic: Denies: Anemia, Blood Clots Past Medical History - SOCIAL HISTORY Smoking Status: Former smoker - RESPIRATORY Hx Respiratory Disorders: Yes Hx Bronchitis: Yes - CARDIOVASCULAR Hx Cardio Disorders: Yes Hx Heart Attack: Yes Hx Hypertension: Yes Comment:: stents, high cholesterol - NEURO Hx Neuro Disorders: No - GI Hx GI Disorders: Yes Hx Reflux: Yes - Hx Genitourinary Disorders: No - ENDOCRINE Hx Endocrine Disorders: No Hx Diabetes: No Hx Thyroid Disease: No - MUSCULOSKELETAL Hx Musculoskeletal Disorders: Yes Hx Arthritis: Yes (psoriatic) - PSYCH Hx Psych Problems: No - HEMATOLOGY/ONCOLOGY Hx Hematology/Oncology Disorders: No Family Medical History Any Significant Family History?: Yes Family Hx Comment (NOT TO BE USED IN PLACE OF ITEMS BELOW): Mother w/brain tumor -benign Hx Cancer: Grandparents Hx Diabetes: Grandparents Hx Heart Disease: Brother/Sister Hx Resp Disorders: Grandparents Physical Exam - General General Appearance: Alert, Oriented x3, Cooperative, No acute distress, Other ( Patient reports that his symptoms have now resolved.) Limitations: No limitations - Head Head exam: Atraumatic, Normocephalic, Normal inspection Head exam detail: negative: Abrasion, Contusion, Blake's sign, General tenderness, Hematoma, Laceration - Eye Eye exam: Normal appearance. negative: Conjunctival injection, Periorbital swelling, Periorbital tenderness, Scleral icterus - ENT Ear exam: negative: Auricular hematoma, Auricular trauma Nasal Exam: negative: Active bleeding, Discharge, Dried blood, Foreign body Mouth exam: negative: Drooling, Laceration, Muffled voice, Tongue elevation - Neck Neck exam: Normal inspection. negative: Meningismus, Tenderness - Respiratory Respiratory exam: Normal lung sounds bilaterally. negative: Rales, Respiratory distress, Rhonchi, Stridor - Cardiovascular Cardiovascular Exam: Regular rate, Normal rhythm, Normal heart sounds - GI/Abdominal GI/Abdominal exam: Soft, Tenderness (Mild TTP RLQ, no peritoneal signs on examination.). negative: Rebound, Rigid - Rectal Rectal exam: Deferred - exam: Deferred - Extremities Extremities exam: Normal inspection. negative: Calf tenderness, Pedal edema, Tenderness - Back Back exam: Denies: CVA tenderness (R), CVA tenderness (L) - Neurological Neurological exam: Alert, CN II-XII intact, Normal gait, Oriented X3, Other ( Patient stands and ambulates easily without difficulty, no vertigo symptoms reoccurred.). negative: Motor sensory deficit - Psychiatric Psychiatric exam: Normal affect, Normal mood - Skin Skin exam: Normal color. negative: Abrasion Type of lesion: negative: abrasion Course Vital Signs 07/14/18 22:05 Temperature 97.6 F Pulse Rate 60 Respiratory 16 Rate Blood Pressure 158/89 Pulse Ox 98 - Reevaluation(s) Reevaluation #1: 07/14/18 22:38 EKG: NSR 66 Normal intervals, normal axis T wave inversions II, III, AVF No acute ST-T wave changes are present Patient was able to easily stand, ambulate, and bend over without reproducing his symptoms on examination. Will obtain laboratory studies and CT imaging of the head/neck and re-evaluate. Reevaluation #2: 07/14/18 23:07 Laboratory studies were reviewed and are grossly unremarkable for an acute process. Patient is currently in CT for imaging. Reevaluation #3: 07/15/18 00:19 CTA Head/Neck: No acute findings No significant stenoses identified Degenerative changes of the spine Patient was updated on all results, has ambulated to the bathroom with steady gait, and reports that his symptoms have not returned. Patient appears stable for discharge at this time. Medical Decision Making - Lab Data Result diagrams: 07/14/18 22:24 07/14/18 22:24 Disposition Disposition: Discharge Clinical Impression: Vertigo, Neck pain Disposition: Home, Self-Care Condition: (2) Stable Instructions: Dizziness (ED) Additional Instructions: Return to ED if your symptoms worsen or if you have any concerns. Follow-up with your family doctor in 3-5 days as directed. Forms: Patient Portal Access Time of Disposition: 00:21 Quality - Quality Measures Quality Measures: N/A - Blood Pressure Screening Does Patient Have Any of the Following: No Blood Pressure Classification: Pre-Hypertensive BP Reading Systolic Measurement: 158 Diastolic Measurement: 89 Screening for High Blood Pressure: < Pre-Hypertensive BP, F/U Documented > [ [id number]] Pre-Hypertensive Follow-up Interventions: Referral to alternative/primary care provider.
[2018-07-14 22:43] LABS: BLOOD UREA NITROGEN 13 mg/dL (8-23); EST GLOMERULAR FILTRATION RATE > 60 mL/min; TOTAL PROTEIN 7.2 g/dL (6.6-8.7)
[2018-07-14 22:45] LABS: GLUCOSE,RANDOM 97 mg/dL (74-109)
[2018-07-14 22:48] LABS: ALB/GLOB RATIO 1.9 (1.1-1.8); ALBUMIN 4.7 g/dL (4.0-5.0); ALKALINE PHOSPHATASE 59 U/L (40-129); ALT/SGPT 35 U/L (<41); AST/SGOT 24 U/L (10.0-50.0)
--- NOTE | 2018-07-16 08:35 | CT ANGIOGRAM REPORT ---
EXAM: CT ANGIOGRAM HEAD/NECK CTA w contrast HISTORY: 67-YEAR-OLD MALE WITH DIZZINESS AND NECK, BACK, AND GROIN PAIN, WHICH HAS PRESENT FOR TWO DAYS. TECHNIQUE: Routine CT angiography images of the head and neck obtained following intravenous administration of contrast. Amount and type of contrast in the medical record. 3D/MIP images obtained for further assessment. COMPARISON: None. FINDINGS: CTA NECK: There is mild aortic atherosclerosis. Aortic arch has a normal configuration. Mild atherosclerosis involving the subclavian origin without significant stenosis. Bilaterally, the common carotid and internal carotid arteries enhance normally with contrast. No significant stenosis. Minimal atherosclerotic calcification. The left vertebral artery is dominant. Bilaterally, vertebral arteries enhance normally with contrast. No significant stenosis. Minimal atherosclerotic calcification. CTA HEAD: Within the anterior circulation, the internal carotid, middle cerebral, and anterior cerebral arteries enhance normally with contrast. Within the posterior circulation, the vertebral, basilar, and posterior cerebral arteries enhance normally with contrast. NONANGIOGRAPHIC FINDING: Mild emphysematous changes within the visualized lung apices. There is moderate cervical and thoracic spondylosis primarily with anterior bridging osteophytes. IMPRESSION: NORMAL CTA OF THE HEAD AND NECK. JOB NUMBER: [id number] [facility]
== END 2018-07-15 00:29 | disposition home or self-care (01) ==
LOC: ER 22:00
DX: R42 Dizziness and giddiness (principal); M54.2 Cervicalgia; M54.6 Pain in thoracic spine; I10 Essential (primary) hypertension; I25.2 Old myocardial infarction; Z87.891 Personal history of nicotine dependence
CPT/HCPCS: 99284 ×2; 85025; 80053; 70496; 70498; 93005; 93010; Q9967

== ENCOUNTER 2018-09-24 00:52 | Emergency (ER) | payer MEDICARE ==
[2018-09-24] MEDS: 0.9 % SODIUM CHLORIDE 1000ML 1,000 ML IV SCH (01:02)
[2018-09-24] MEDS: ONDANSETRON HCL IV 4 MG/2 ML VIAL IVP ONE (01:02)
--- NOTE | 2018-09-24 01:02 | Emergency Department Record ---
History of Present Illness - General Chief Complaint: Dizziness Stated Complaint: DIZZY/NAUSEOUS Time Seen by Provider: 09/24/18 00:53 Source: Patient Mode of Arrival: Ambulatory Limitations: No limitations - History of Present Illness Initial Comments: 68 yo male presents to ED for evaluation of nausea, abdominal pain symptoms for the past 2 days. Patient denies chest discomfort or vomiting, denies fevers, chills, or recent illness. Patient denies change in stools. Patient denies previous abdominal surgery. Patient does report a history of HTN and previous cardiac disease. Onset/Timin -: Days(s) Timing: Intermittent History of Same: No History of Trauma: No Severity: Moderate Improves With: Nothing Worsens With: Nothing Associated Symptoms: Denies other symptoms - Cheikh Coma Scale Eye Response: (4) Open spontaneously Motor Response: (6) Obeys commands Verbal Response: (5) Oriented Cheikh Total: 15 - Related Data Previous Rx's Medication Instructions Recorded Famotidine [Pepcid] 40 mg PO DAILY #30 tablet 09/24/18 Ondansetron [Zofran Odt] 4 mg PO Q6H PRN #15 tab.rapdis 09/24/18 Allergies Allergy/AdvReac Type Severity Reaction Status Date / Time Egg Derived Allergy Unknown HYPERSENSIT Verified 06/18/18 10:16 IVITY Review of Systems Constitutional: Denies: Chills, Fever, Malaise, Night sweats Eyes: Denies: Eye discharge, Eye pain ENT: Denies: Congestion, Ear pain, Epistaxis Respiratory: Denies: Cough, Dyspnea Cardiovascular: Denies: Chest pain, Dyspnea on exertion Endocrine: Denies: Fatigue, Heat or cold intolerance Gastrointestinal: Reports: Abdominal pain, Nausea. Denies: Constipation, Vomiting Genitourinary: Denies: Incontinence, Retention Musculoskeletal: Denies: Arthralgia, Back pain, Gout, Joint swelling Skin: Denies: Bruising, Change in color Neurological: Reports: Vertigo. Denies: Abnormal gait, Confusion, Headache, Seizure Psychiatric: Denies: Anxiety Hematological/Lymphatic: Denies: Anemia, Blood Clots Past Medical History - SOCIAL HISTORY Smoking Status: Former smoker - RESPIRATORY Hx Respiratory Disorders: Yes Hx Bronchitis: Yes - CARDIOVASCULAR Hx Cardio Disorders: Yes Hx Heart Attack: Yes Hx Hypertension: Yes Comment:: stents, high cholesterol - NEURO Hx Neuro Disorders: No - GI Hx GI Disorders: Yes Hx Reflux: Yes - Hx Genitourinary Disorders: No - ENDOCRINE Hx Endocrine Disorders: No Hx Diabetes: No Hx Thyroid Disease: No - MUSCULOSKELETAL Hx Musculoskeletal Disorders: Yes Hx Arthritis: Yes (psoriatic) - PSYCH Hx Psych Problems: No - HEMATOLOGY/ONCOLOGY Hx Hematology/Oncology Disorders: No Family Medical History Family Hx Comment (NOT TO BE USED IN PLACE OF ITEMS BELOW): Mother w/brain tumor -benign Hx Cancer: Grandparents Hx Diabetes: Grandparents Hx Heart Disease: Brother/Sister Hx Resp Disorders: Grandparents Physical Exam - General General Appearance: Alert, Oriented x3, Cooperative, Mild distress Limitations: No limitations - Head Head exam: Atraumatic, Normocephalic, Normal inspection Head exam detail: negative: Abrasion, Contusion, Blake's sign, General tenderness, Hematoma, Laceration - Eye Eye exam: Normal appearance. negative: Conjunctival injection, Periorbital swelling, Periorbital tenderness, Scleral icterus - ENT Ear exam: negative: Auricular hematoma, Auricular trauma Nasal Exam: negative: Active bleeding, Discharge, Dried blood, Foreign body Mouth exam: negative: Drooling, Laceration, Muffled voice, Tongue elevation - Neck Neck exam: Normal inspection. negative: Meningismus, Tenderness - Respiratory Respiratory exam: Normal lung sounds bilaterally. negative: Rales, Respiratory distress, Rhonchi, Stridor - Cardiovascular Cardiovascular Exam: Regular rate, Normal rhythm, Normal heart sounds - GI/Abdominal GI/Abdominal exam: Soft. negative: Rebound, Rigid, Tenderness - Rectal Rectal exam: Deferred - exam: Deferred - Extremities Extremities exam: Normal inspection. negative: Calf tenderness, Pedal edema, Tenderness - Back Back exam: Denies: CVA tenderness (R), CVA tenderness (L) - Neurological Neurological exam: Alert, Normal gait, Oriented X3 - Psychiatric Psychiatric exam: Normal affect, Normal mood - Skin Skin exam: Normal color. negative: Abrasion Type of lesion: negative: abrasion Course - Reevaluation(s) Reevaluation #1: 09/24/18 01:04 EKG: NSR 67 Normal intervals, LAD T wave inversions I, AVL Reevaluation #2: 09/24/18 01:33 Laboratory studies were reviewed and are grossly unremarkable for an acute process. Patient is in CT currently. Reevaluation #3: 09/24/18 03:41 Patient was updated on all results thus far, reports that he is feeling much better following Zofran. Awaiting CT imaging results. Reevaluation #4: 09/24/18 03:49 CT Abdomen and Pelvis: No acute findings No obstructive uropathy Prostamegaly Patient was updated on all results, reports that he continues to feel well at this time. I discussed placing the patient in observation, patient reports that he is feeling much better and wants to go home with family at this time. Will place on Zofran and Pepcid as directed. Medical Decision Making - Lab Data Result diagrams: 09/24/18 01:05 09/24/18 01:05 Disposition Disposition: Discharge Clinical Impression: Nausea Abdominal pain Qualifiers: Abdominal location: generalized Qualified Code(s): R10.84 - Generalized abdominal pain Disposition: Home, Self-Care Condition: (2) Stable Instructions: Abdominal Pain (ED) Additional Instructions: Return to ED if your symptoms worsen or if you have any concerns. Pepcid and Zofran as directed. Follow-up with your family doctor in 3-5 days as directed. Prescriptions: Famotidine [Pepcid] 40 mg PO DAILY #30 tablet Ondansetron [Zofran Odt] 4 mg PO Q6H PRN #15 tab.rapdis PRN Reason: Nausea/Vomiting Forms: Patient Portal Access Time of Disposition: 03:48 Quality - Quality Measures Quality Measures: N/A - Blood Pressure Screening Does Patient Have Any of the Following: Active Dx of HTN Blood Pressure Classification: Pre-Hypertensive BP Reading Systolic Measurement: 160 Diastolic Measurement: 88 Screening for High Blood Pressure: Patient Exclusion, Hx of HTN [G9744]
[2018-09-24 01:10] LABS: BASO % 0.3 % (0-6); EOS % 1.9 % (0-6); HEMATOCRIT 47.9 % (42.0-52.0); HEMOGLOBIN 17.2 gm/dl (14.0-18.0); LYMPH % 22.8 % (16-45); MEAN CELL VOLUME 88.5 fl (81-97); MEAN CORPUSCULAR HEMOGLOBIN 31.8 pg (27-33); MEAN CORPUSCULAR HGB CONC 35.9 g/dl (32-36); MEAN PLATELET VOLUME 9.5 fl (7.4-10.4); PLATELET COUNT 266 K/uL (130-400); RED BLOOD COUNT 5.41 M/uL (4.40-5.70); RED CELL DISTRIBUTION WIDTH 12.2 % (11.5-14.5); WHITE BLOOD COUNT W/O DIFF 10.2 K/uL (4.2-12.2)
[2018-09-24 01:20] LABS: BLOOD UREA NITROGEN 14 mg/dL (8-23); CREATININE 0.8 mg/dL (0.7-1.2); EST GLOMERULAR FILTRATION RATE > 60 mL/min
[2018-09-24 01:21] LABS: TOTAL PROTEIN 6.9 g/dL (6.6-8.7)
[2018-09-24 01:23] LABS: GLUCOSE,RANDOM 104 mg/dL (74-109)
[2018-09-24 01:25] LABS: ALBUMIN 4.6 g/dL (4.0-5.0); ALT/SGPT 32 U/L (<41); AST/SGOT 21 U/L (10.0-50.0)
[2018-09-24 01:26] LABS: ALKALINE PHOSPHATASE 54 U/L (40-129)
--- NOTE | 2018-09-27 05:39 | CT SCAN REPORT ---
DATE: 09/23/2018. EXAM: CT OF THE ABDOMEN AND PELVIS WITH CONTRAST. HISTORY: This is a 68-year-old male with pain, nausea, and diarrhea. TECHNIQUE: Routine CT images of the abdomen and pelvis were obtained following intravenous administration of contrast; amount and type of contrast in the medical record. COMPARISON: 02/10/2018. FINDINGS: The visualized lung bases are unremarkable. The gallbladder is surgically absent. The liver, pancreas, spleen, and adrenals are unremarkable. There are tiny bilateral, nonobstructing adrenal calculi. There is a small, 1.0 [id number] cyst in the midpole of the left kidney. Suggestion of a small hiatal hernia. There is a moderate volume of stool within the colon. Minimal colonic diverticulosis without evidence for diverticulitis. Appendix is not visualized as a discrete structure. The bowel is normal in caliber. The bladder is unremarkable. The prostate is enlarged, measuring approximately 6.4 x 5.3 cm. There are prostate calcifications. There are moderate atherosclerotic calcifications throughout. Minimal aortic ectasia without aneurysmal dilatation. No abdominal or pelvic lymphadenopathy. No free air or free fluid. Small, fat-containing right inguinal hernia. No acute osseous abnormality. IMPRESSION: 1. NO ACUTE INTRA-ABDOMINAL OR PELVIC ABNORMALITY. 2. NONOBSTRUCTING BILATERAL INTRARENAL CALCULI. 3. MODERATE VOLUME OF STOOL WITHIN THE COLON. THERE ARE A FEW SCATTERED COLONIC DIVERTICULA WITHOUT EVIDENCE OF DIVERTICULITIS. 4. SMALL HIATAL HERNIA. 5. ENLARGED PROSTATE. 6. FAT-CONTAINING RIGHT INGUINAL HERNIA. JOB NUMBER: [id number] MTDD
== END 2018-09-24 03:56 | disposition home or self-care (01) ==
LOC: ER 00:52
DX: R10.84 Generalized abdominal pain (principal); R11.0 Nausea; R19.7 Diarrhea, unspecified; R42 Dizziness and giddiness; I25.2 Old myocardial infarction; I10 Essential (primary) hypertension; Z87.891 Personal history of nicotine dependence
CPT/HCPCS: 99284 ×2; 96374; 96361; 83690; 85025; 80053; 84484; 74177; 93005; 93010; Q9967; J2405; J7030

== ENCOUNTER 2018-10-10 01:54 | Emergency (ER) | payer MEDICARE ==
--- NOTE | 2018-10-10 02:08 | Emergency Department Record ---
History of Present Illness - General Chief Complaint: Abdominal Pain Stated Complaint: ABDOMINAL PAIN Time Seen by Provider: 10/10/18 01:55 Source: Patient Mode of Arrival: Ambulatory Limitations: No limitations - History of Present Illness Initial Comments: 68 yo male presents with abdominal pain. He states he has been having abdominal issues for about 6 months. He reports he has seen his PCP and he has been in the ED several times. He started a PPI and was given Famotidine. He reports no improvement. He has a bad taste in his mouth "like medicine taste". He reports his bowel movements have been irregular. No blood in the stools. His last colonoscopy was about 4 years ago per the patient. He states "they did not find anything". The pain "rumble" and moves around. He had a CT of the abdomen about [address] Walker is his PCP. He reports the symptoms keep him up at night and he is unable to sleep. MD Complaint: Abdominal pain Location: RUQ, RLQ Radiation: RUQ, RLQ Migration to: RUQ, RLQ Severity: Moderate Quality: Aching Consistency: Constant (Constant) Improves With: Nothing Worsens With: Nothing Context: Other Associated Symptoms: Other - Related Data Home Medications Medication Instructions Recorded Confirmed Last Taken Meclizine HCl [Antivert] 25 mg PO Q8H 10/10/18 10/10/18 Unknown Previous Rx's Medication Instructions Recorded Famotidine [Pepcid] 40 mg PO DAILY #30 tablet 09/24/18 Hyoscyamine Sulfate [Levsin-Sl] 0.125 mg SL BID PRN #20 tab.subl 10/10/18 Polyethylene Glycol 3350 [Miralax] 1 packet PO DAILY #20 packet 10/10/18 Allergies Allergy/AdvReac Type Severity Reaction Status Date / Time Egg Derived Allergy Unknown HYPERSENSIT Verified 06/18/18 10:16 IVITY Review of Systems Constitutional: Denies: Chills, Fever, Malaise, Weakness Eyes: Denies: Eye discharge ENT: Denies: Congestion, Throat pain Respiratory: Denies: Cough Cardiovascular: Denies: Chest pain, Palpitations, Syncope Endocrine: Denies: Fatigue Gastrointestinal: Reports: As per HPI, Abdominal pain Genitourinary: Denies: Dysuria, Frequency, Hematuria Musculoskeletal: Denies: Arthralgia, Back pain, Myalgia, Neck pain Skin: Denies: Bruising, Change in color, Rash Neurological: Denies: Headache, Weakness Psychiatric: Denies: Anxiety Hematological/Lymphatic: Denies: Easy bleeding, Easy bruising, Swollen glands Past Medical History - SOCIAL HISTORY Smoking Status: Former smoker - RESPIRATORY Hx Respiratory Disorders: Yes Hx Bronchitis: Yes - CARDIOVASCULAR Hx Cardio Disorders: Yes Hx Heart Attack: Yes Hx Hypertension: Yes Comment:: stents, high cholesterol - NEURO Hx Neuro Disorders: No - GI Hx GI Disorders: Yes Hx Reflux: Yes - Hx Genitourinary Disorders: No - ENDOCRINE Hx Endocrine Disorders: No Hx Diabetes: No Hx Thyroid Disease: No - MUSCULOSKELETAL Hx Musculoskeletal Disorders: Yes Hx Arthritis: Yes (psoriatic) - PSYCH Hx Psych Problems: No - HEMATOLOGY/ONCOLOGY Hx Hematology/Oncology Disorders: No Family Medical History Family Hx Comment (NOT TO BE USED IN PLACE OF ITEMS BELOW): Mother w/brain tumor -benign Hx Cancer: Grandparents Hx Diabetes: Grandparents Hx Heart Disease: Brother/Sister Hx Resp Disorders: Grandparents Physical Exam - General General Appearance: Alert, Oriented x3, Cooperative, No acute distress Limitations: No limitations - Head Head exam: Atraumatic, Normal inspection - Eye Eye exam: Normal appearance. negative: Conjunctival injection, Scleral icterus - ENT ENT exam: Normal exam Ear exam: Normal external inspection Nasal Exam: Normal inspection Mouth exam: Normal external inspection - Neck Neck exam: Normal inspection - Respiratory Respiratory exam: Normal lung sounds bilaterally. negative: Respiratory distress - Cardiovascular Cardiovascular Exam: Regular rate, Normal rhythm, Normal heart sounds - GI/Abdominal GI/Abdominal exam: Soft, Other (Very soft abdomen). negative: Distended, Guarding, Hernia, Rebound, Rigid, Tenderness - Rectal Rectal exam: Deferred - exam: Deferred - Extremities Extremities exam: Normal inspection. negative: Tenderness - Back Back exam: Denies: CVA tenderness (R), CVA tenderness (L) - Neurological Neurological exam: Alert, Oriented X3 - Psychiatric Psychiatric exam: Normal affect, Normal mood - Skin Skin exam: Dry, Intact, Normal color, Warm Course - Reevaluation(s) Reevaluation #1: The EMR was reviewed CT from 09/24/18 was reviewed. Small bilateral renal stones, moderate stool 10/10/18 02:12 10/10/18 02:44 The labs were reviewed No significant changes on CBC,CMP, Lipase. The UA is negative for any abnormality 10/10/18 02:50 The patient is feeling much more comfortable. We discussed DC, home care and referral to GI for his ongoing symptoms We discussed the CT scan from the prior visit with the increased stool as well suggesting treatments Medical Decision Making - Lab Data Result diagrams: 10/10/18 02:11 10/10/18 02:11 Disposition Disposition: Discharge Clinical Impression: Abdominal pain Disposition: Home, Self-Care Condition: (1) Good Instructions: Abdominal Pain (ED) Additional Instructions: Call Dr Walker for close follow up You have been referred back to GI for follow up in the office for your ongoing abdominal symptoms Take the Levsin as directed for cramps Prescriptions: Hyoscyamine Sulfate [Levsin-Sl] 0.125 mg SL BID PRN #20 tab.subl PRN Reason: Abdominal Pain Polyethylene Glycol 3350 [Miralax] 1 packet PO DAILY #20 packet Referrals: CAROLINA PIMENTEL [MEDICAL DOCTOR] - [facility] Special[facility] Clin[facility] [Provider Group] Forms: Patient Portal Access Time of Disposition: 02:51 Quality - Quality Measures Quality Measures: N/A - Blood Pressure Screening Does Patient Have Any of the Following: No Blood Pressure Classification: Pre-Hypertensive BP Reading Systolic Measurement: 156 Diastolic Measurement: 88 Screening for High Blood Pressure: < Pre-Hypertensive BP, F/U Documented > [ G8950] Pre-Hypertensive Follow-up Interventions: Referral to alternative/primary care provider.
[2018-10-10] MEDS ORDERED: ACETAMINOPHEN 1,000 MG/100 ML BTL IVPB ONE (02:10)
[2018-10-10] MEDS ORDERED: HYOSCYAMINE SULFATE ODT 0.125 MG TAB.SUBL SL ONE (02:10)
[2018-10-10] MEDS ORDERED: ONDANSETRON HCL IV 4 MG/2 ML VIAL IVP ONE (02:10)
[2018-10-10 02:21] LABS: BASO % 0.3 % (0-6); EOS % 1.9 % (0-6); HEMATOCRIT 47.5 % (42.0-52.0); HEMOGLOBIN 16.5 gm/dl (14.0-18.0); LYMPH % 29.8 % (16-45); MEAN CELL VOLUME 90.1 fl (81-97); MEAN CORPUSCULAR HEMOGLOBIN 31.3 pg (27-33); MEAN CORPUSCULAR HGB CONC 34.7 g/dl (32-36); MEAN PLATELET VOLUME 9.6 fl (7.4-10.4); PLATELET COUNT 266 K/uL (130-400); RED BLOOD COUNT 5.27 M/uL (4.40-5.70); RED CELL DISTRIBUTION WIDTH 12.3 % (11.5-14.5); WHITE BLOOD COUNT W/O DIFF 8.8 K/uL (4.2-12.2)
[2018-10-10 02:31] LABS: BLOOD UREA NITROGEN 13 mg/dL (8-23); CREATININE 0.9 mg/dL (0.7-1.2); EST GLOMERULAR FILTRATION RATE > 60 mL/min; LIPASE 54 U/L (13-60); TOTAL PROTEIN 6.7 g/dL (6.6-8.7)
[2018-10-10 02:31] LABS: URINE APPEARANCE CLEAR; URINE BILIRUBIN NEGATIVE (NEGATIVE); URINE BLOOD NEGATIVE (NEGATIVE); URINE COLOR YELLOW; URINE GLUCOSE (UA) NEGATIVE (NEGATIVE); URINE KETONE NEGATIVE (NEGATIVE); URINE LEUKOCYTE ESTERASE NEGATIVE (NEGATIVE); URINE NITRITE NEGATIVE (NEGATIVE); URINE PROTEIN NEGATIVE (NEGATIVE); URINE UROBILINOGEN 0.2 E.U./dL (0.20 - 1.00)
[2018-10-10 02:33] LABS: GLUCOSE,RANDOM 98 mg/dL (74-109)
[2018-10-10 02:36] LABS: ALB/GLOB RATIO 2.2 (1.1-1.8); ALBUMIN 4.6 g/dL (4.0-5.0); ALKALINE PHOSPHATASE 52 U/L (40-129); ALT/SGPT 31 U/L (<41); AST/SGOT 22 U/L (10.0-50.0)
== END 2018-10-10 03:07 | disposition home or self-care (01) ==
LOC: ER 01:54
DX: R10.84 Generalized abdominal pain (principal); I10 Essential (primary) hypertension; I25.2 Old myocardial infarction; Z87.891 Personal history of nicotine dependence
CPT/HCPCS: 80053; 81003; 83690; 84443; 85025; 96374; 96375; 99284; J2405

== ENCOUNTER 2018-12-07 00:09 | Emergency (ER) | payer MEDICARE, SELFPAY ==
--- NOTE | 2018-12-07 00:27 | Emergency Department Record ---
History of Present Illness - General Chief Complaint: Abdominal Pain Stated Complaint: ABDOMINAL PAIN Time Seen by Provider: 12/07/18 00:22 Source: Patient Mode of Arrival: Ambulatory Limitations: No limitations - History of Present Illness Initial Comments: 68 yo male presents with recurring abdominal pain for many months. The current episode started yesterday afternoon. He has associated nausea. No vomiting. No diarrhea. No fevers. He has had his gall bladder removed in the past. He has had an appendectomy. He has a known right inguinal hernia that Dr Walker discovered. He is scheduled to see a surgeon on December 18. The hernia is not te nder currently. No chest or back pain. He states he is scheduled for a colonoscopy but not until the hernia is repaired. MD Complaint: Abdominal pain Location: Epigastric, Periumbilical Radiation: Epigastric Migration to: Epigastric, Periumbilical Quality: Aching Consistency: Intermittent Improves With: Nothing Worsens With: Nothing Context: Other (Recurrent abdominal pain) Associated Symptoms: Nausea - Related Data Previous Rx's Medication Instructions Recorded Famotidine [Pepcid] 40 mg PO DAILY #30 tablet 09/24/18 Hyoscyamine Sulfate [Levsin-Sl] 0.125 mg SL BID PRN #20 tab.subl 10/10/18 Polyethylene Glycol 3350 [Miralax] 1 packet PO DAILY #20 packet 10/10/18 Allergies Allergy/AdvReac Type Severity Reaction Status Date / Time Egg Derived Allergy Unknown HYPERSENSIT Verified 12/07/18 00:22 IVITY Review of Systems Constitutional: Denies: Chills, Fever, Malaise, Weakness Eyes: Denies: Eye discharge ENT: Denies: Congestion, Throat pain Respiratory: Denies: Cough, Dyspnea Cardiovascular: Denies: Chest pain, Palpitations, Syncope Endocrine: Denies: Fatigue, Polydipsia, Polyuria Gastrointestinal: Reports: Abdominal pain, Nausea. Denies: Constipation, Diarrhea, Hematemesis, Hematochezia, Melena, Vomiting Genitourinary: Denies: Dysuria, Frequency, Hematuria Musculoskeletal: Denies: Arthralgia, Back pain, Myalgia Skin: Denies: Bruising, Change in color, Rash Neurological: Denies: Headache Psychiatric: Denies: Anxiety Hematological/Lymphatic: Denies: Easy bleeding, Easy bruising Past Medical History - SOCIAL HISTORY Smoking Status: Former smoker - RESPIRATORY Hx Respiratory Disorders: Yes Hx Bronchitis: Yes - CARDIOVASCULAR Hx Cardio Disorders: Yes Hx Heart Attack: Yes Hx Hypertension: Yes Comment:: stents, high cholesterol - NEURO Hx Neuro Disorders: No - GI Hx GI Disorders: Yes Hx Reflux: Yes - Hx Genitourinary Disorders: No - ENDOCRINE Hx Endocrine Disorders: No Hx Diabetes: No Hx Thyroid Disease: No - MUSCULOSKELETAL Hx Musculoskeletal Disorders: Yes Hx Arthritis: Yes (psoriatic) - PSYCH Hx Psych Problems: No - HEMATOLOGY/ONCOLOGY Hx Hematology/Oncology Disorders: No Family Medical History Family Hx Comment (NOT TO BE USED IN PLACE OF ITEMS BELOW): Mother w/brain tumor-benign Hx Cancer: Grandparents Hx Diabetes: Grandparents Hx Heart Disease: Brother/Sister Hx Resp Disorders: Grandparents Physical Exam - General General Appearance: Alert, Oriented x3, Cooperative, No acute distress Limitations: No limitations - Head Head exam: Atraumatic, Normal inspection - Eye Eye exam: Normal appearance. negative: Conjunctival injection - ENT ENT exam: Normal exam Ear exam: Normal external inspection Nasal Exam: Normal inspection Mouth exam: Normal external inspection - Neck Neck exam: Normal inspection - Respiratory Respiratory exam: Normal lung sounds bilaterally. negative: Respiratory distress - Cardiovascular Cardiovascular Exam: Regular rate, Normal rhythm, Normal heart sounds - GI/Abdominal GI/Abdominal exam: Soft, Normal bowel sounds, Tenderness (mild tenderness betwe en the umbilicus and the epigastric area but very soft, right inguinal area is non tender). negative: Distended, Guarding, Hypoactive bowel sounds, Rebound, Rigid - Rectal Rectal exam: Deferred - exam: Deferred - Extremities Extremities exam: Normal inspection - Back Back exam: Denies: CVA tenderness (R), CVA tenderness (L) - Neurological Neurological exam: Alert, Oriented X3 - Psychiatric Psychiatric exam: Normal affect, Normal mood - Skin Skin exam: Dry, Intact, Normal color, Warm Course Vital Signs 12/07/18 00:24 Temperature 98.0 F Pulse Rate [ 66 Left] Respiratory 18 Rate Blood Pressure 133/78 [Left Arm] Pulse Ox 96 - Reevaluation(s) Reevaluation #1: The EMR was reviewed. CT scan in September was reviewed. Stool noted. No acute process. 12/07/18 00:26 12/07/18 01:20 The labs were reviewed No acute changes. 12/07/18 01:24 On recheck the patient did get very good pain relief from the [facility]. 12/07/18 01:58 The UA is negative 12/07/18 02:[address] was reviewed. See the [facility] full report with multiple incidental findings. No acute process. The results were discussed with the patient. He will follow up the results with his doctor as well for further outpatient follow up. Medical Decision Making - Lab Data Result diagrams: 12/07/18 00:35 12/07/18 00:35 Disposition Disposition: Discharge Clinical Impression: Abdominal pain Disposition: Home, Self-Care Condition: (1) Good Instructions: Abdominal Pain (ED) Additional Instructions: Call your doctor for the next available follow up appointment Review this ER visit and the tests performed with your family doctor There are a number of items noted by the radiologist that your doctor may need to recheck or monitor Return to the ER for a recheck if worse, any new concerns or questions Forms: Patient Portal Access Time of Disposition: 02:31 Quality - Quality Measures Quality Measures: N/A - Blood Pressure Screening Does Patient Have Any of the Following: No Blood Pressure Classification: Pre-Hypertensive BP Reading Systolic Measurement: 123 Diastolic Measurement: 75 Screening for High Blood Pressure: < Pre-Hypertensive BP, F/U Documented > [G8950] Pre-Hypertensive Follow-up Interventions: Referral to alternative/primary care provider.
[2018-12-07] MEDS ORDERED: ACETAMINOPHEN 1,000 MG/100 ML BTL IVPB ONE (00:39)
[2018-12-07] MEDS ORDERED: 0.9 % SODIUM CHLORIDE 1,000 ML BAG IV ONE (00:39)
[2018-12-07] MEDS ORDERED: ONDANSETRON HCL IV 4 MG/2 ML VIAL IVP ONE (00:39)
[2018-12-07 00:48] LABS: ABSOLUTE NEUTROPHIL COUNT 6.24; BASO % 0.2 % (0-6); EOS % 2.2 % (0-6); GRAN % 60.1 % (47-80); HEMATOCRIT 47.5 % (42.0-52.0); HEMOGLOBIN 16.6 gm/dl (14.0-18.0); LYMPH % 27.4 % (16-45); MEAN CORPUSCULAR HEMOGLOBIN 31.4 pg (27-33); MEAN CORPUSCULAR HGB CONC 34.9 g/dl (32-36); MEAN PLATELET VOLUME 9.4 fl (7.4-10.4); MONO % 10.1 % (0-9); PLATELET COUNT 274 K/uL (130-400); RED BLOOD COUNT 5.28 M/uL (4.40-5.70); RED CELL DISTRIBUTION WIDTH 12.3 % (11.5-14.5); URINE APPEARANCE CLEAR; URINE BILIRUBIN NEGATIVE (NEGATIVE); URINE BLOOD NEGATIVE (NEGATIVE); URINE COLOR YELLOW; URINE GLUCOSE (UA) NEGATIVE (NEGATIVE); URINE KETONE NEGATIVE (NEGATIVE); URINE LEUKOCYTE ESTERASE NEGATIVE (NEGATIVE); URINE NITRITE NEGATIVE (NEGATIVE); URINE PROTEIN NEGATIVE (NEGATIVE); URINE UROBILINOGEN 0.2 E.U./dL (0.20 - 1.00); WHITE BLOOD COUNT W/O DIFF 10.4 K/uL (4.2-12.2)
[2018-12-07 01:03] LABS: BLOOD UREA NITROGEN 15 mg/dL (8-23); CREATININE 1.1 mg/dL (0.7-1.2); EST GLOMERULAR FILTRATION RATE > 60 mL/min; LIPASE 52 U/L (13-60); TOTAL PROTEIN 6.7 g/dL (6.6-8.7)
[2018-12-07 01:05] LABS: GLUCOSE,RANDOM 100 mg/dL (74-109)
[2018-12-07 01:08] LABS: ALB/GLOB RATIO 2.2 (1.1-1.8); ALBUMIN 4.6 g/dL (4.0-5.0); ALKALINE PHOSPHATASE 52 U/L (40-129); ALT/SGPT 34 U/L (<41); AST/SGOT 27 U/L (10.0-50.0)
--- NOTE | 2018-12-08 19:55 | CT SCAN REPORT ---
EXAM: CT SCAN ABDOMEN/PELVIS W CONTRAST HISTORY: ABDOMINAL PAIN. PRIOR CHOLECYSTECTOMY AND APPENDECTOMY. TECHNIQUE: CT abdomen and pelvis performed with 100 mL Omnipaque-350 intravenous contrast. COMPARISON: CT abdomen and pelvis 09/24/2018. FINDINGS: Minor scattered atelectasis or scarring in both lung bases. Mildly thickened appearance of the visualized distal esophagus to the level of the gastroesophageal junction. Gallbladder is surgically absent. Unremarkable appearance of the liver, spleen, adrenal glands, and pancreas. Bilateral intrarenal calculi measuring up to 6 mm on the right and 7 mm on the left. No hydronephrosis. Symmetric renal and cortical perfusion. Diffuse calcification of the aortoiliac arterial access. Minimal ectasia of the infrarenal abdominal aorta measuring up to 2.3 cm. No true aneurysm or dissection. Scattered colonic diverticulosis without evidence of acute diverticulitis. Mildly thickened appearance of the gastric fundal and body hay. Small bowel is nondilated. No free air or free fluid. Prostate gland is enlarged and heterogeneous with coarse internal calcifications. Calcification pattern similar from recent comparison CT. Unremarkable appearance of the urinary bladder. Mild rectus diastasis. Small fat-containing right inguinal hernia. Multilevel lumbar degenerative findings. Moderate to marked bilateral femoroacetabular osteoarthrosis. Bilateral sacroiliac joint arthrosis. IMPRESSION: 1. MILDLY THICKENED APPEARANCE OF THE DISTAL ESOPHAGUS AND GASTRIC HAY; NONSPECIFIC BUT MAY BE SEEN IN THE SETTING OF ESOPHAGITIS/GASTRITIS. FURTHER EVALUATION WITH ENDOSCOPY MAY BE OF BENEFIT. 2. OTHERWISE, NO ACUTE FINDINGS IN THE ABDOMEN OR PELVIS. 3. BILATERAL NONOBSTRUCTING INTRARENAL CALCULI. 4. ENLARGED HETEROGENEOUS APPEARANCE OF THE PROSTATE GLAND WITH INTERNAL CALCIFICATIONS. JOB NUMBER: [id number] [facility]
== END 2018-12-07 02:41 | disposition home or self-care (01) ==
LOC: ER 00:09
DX: R10.13 Epigastric pain (principal); R11.0 Nausea; K40.90 Unilateral inguinal hernia, without obstruction or gangrene, not specified as recurrent; I10 Essential (primary) hypertension; I25.2 Old myocardial infarction; Z87.891 Personal history of nicotine dependence; Z11.59 Encounter for screening for other viral diseases
CPT/HCPCS: 99284 ×2; 96365; 96375; 83690; 85025; 80053; 81003; 74177; Q9967; J7030

== ENCOUNTER 2018-12-18 06:50 | Emergency (ER) | payer MEDICARE, SELFPAY ==
[2018-12-18] MEDS ORDERED: ACETAMINOPHEN 1,000 MG/100 ML BTL IVPB ONE (07:13)
[2018-12-18 07:30] LABS: ABSOLUTE NEUTROPHIL COUNT 4.64; BASO % 0.3 % (0-6); EOS % 2.4 % (0-6); GRAN % 64.5 % (47-80); HEMATOCRIT 48.8 % (42.0-52.0); MEAN CELL VOLUME 90.5 fl (81-97); MEAN CORPUSCULAR HEMOGLOBIN 31.5 pg (27-33); MEAN CORPUSCULAR HGB CONC 34.8 g/dl (32-36); MEAN PLATELET VOLUME 9.5 fl (7.4-10.4); MONO % 8.8 % (0-9); PLATELET COUNT 269 K/uL (130-400); RED BLOOD COUNT 5.39 M/uL (4.40-5.70); RED CELL DISTRIBUTION WIDTH 12.4 % (11.5-14.5); WHITE BLOOD COUNT W/O DIFF 7.2 K/uL (4.2-12.2)
[2018-12-18 07:31] LABS: URINE APPEARANCE CLEAR; URINE BILIRUBIN NEGATIVE (NEGATIVE); URINE BLOOD NEGATIVE (NEGATIVE); URINE COLOR YELLOW; URINE GLUCOSE (UA) NEGATIVE (NEGATIVE); URINE KETONE NEGATIVE (NEGATIVE); URINE LEUKOCYTE ESTERASE NEGATIVE (NEGATIVE); URINE NITRITE NEGATIVE (NEGATIVE); URINE PROTEIN NEGATIVE (NEGATIVE); URINE UROBILINOGEN 0.2 E.U./dL (0.20 - 1.00)
--- NOTE | 2018-12-18 07:35 | Emergency Department Record ---
History of Present Illness - General Chief Complaint: Abdominal Pain Stated Complaint: NOT FEELING WELL AGAIN Time Seen by Provider: 12/18/18 07:00 Source: Patient Mode of Arrival: Ambulatory Limitations: No limitations - History of Present Illness Initial Comments: The patient is here due to aching abdominal pain for one day. The pain is just above the umbilicus and is intermittent and aching. There is nausea but no vomiting or diarrhea. The patient also denies any fever, chills, or dysuria. He has had similar pain for about 9 months and has been to the ER multiple times for this. The patient was also here 10 days ago for the same issues and had a neg abdominal CT scan. He does have a known R inguinal hernia and does have an appointment with Dr. Gomes at 8am today but decided to come to the ER instead of keeping the appointment. The patient also had a neg abd CT in September of this year for the same issues. He has had his GB and Appendix removed in the past and his last colonoscopy was 4 years ago. MD Complaint: Abdominal pain Onset/Timin -: Days(s) Location: Periumbilical Radiation: None Consistency: Intermittent Associated Symptoms: Nausea - Related Data Previous Rx's Medication Instructions Recorded Hyoscyamine Sulfate [Levsin-Sl] 0.125 mg SL BID PRN #20 tab.subl 10/10/18 Polyethylene Glycol 3350 [Miralax] 1 packet PO DAILY #20 packet 10/10/18 Allergies Allergy/AdvReac Type Severity Reaction Status Date / Time Egg Derived Allergy Unknown HYPERSENSIT Verified 12/07/18 00:22 IVITY Travel Screening - Travel/Exposure Within Last 30 Days Have you traveled within the last 30 days?: No - Travel Symptoms Symptom Screening: None Review of Systems Constitutional: Denies: Chills, Fever Eyes: Denies: Eye discharge ENT: Denies: Congestion Respiratory: Denies: Cough Cardiovascular: Denies: Arrhythmia, Chest pain Endocrine: Denies: Fatigue Gastrointestinal: Reports: Abdominal pain, Nausea Genitourinary: Denies: Dysuria Musculoskeletal: Denies: Arthralgia Skin: Denies: Bruising Past Medical History - SOCIAL HISTORY Smoking Status: Former smoker - RESPIRATORY Hx Respiratory Disorders: Yes Hx Bronchitis: Yes - CARDIOVASCULAR Hx Cardio Disorders: Yes Hx Heart Attack: Yes Hx Hypertension: Yes Comment:: stents, high cholesterol - NEURO Hx Neuro Disorders: No - GI Hx GI Disorders: Yes Hx Reflux: Yes Comment:: R inguinal hernia - Hx Genitourinary Disorders: No - ENDOCRINE Hx Endocrine Disorders: No Hx Diabetes: No Hx Thyroid Disease: No - MUSCULOSKELETAL Hx Musculoskeletal Disorders: Yes Hx Arthritis: Yes (psoriatic) - PSYCH Hx Psych Problems: No - HEMATOLOGY/ONCOLOGY Hx Hematology/Oncology Disorders: No Family Medical History Any Significant Family History?: Yes Family Hx Comment (NOT TO BE USED IN PLACE OF ITEMS BELOW): Mother w/brain tumor-benign Hx Cancer: Grandparents Hx Diabetes: Grandparents Hx Heart Disease: Brother/Sister Hx Resp Disorders: Grandparents Physical Exam - General General Appearance: Alert, Oriented x3, Cooperative, No acute distress - Head Head exam: Atraumatic, Normocephalic - Eye Eye exam: Normal appearance, PERRL - ENT Throat exam: Normal inspection. negative: Tonsillar erythema, Tonsillar exudate - Neck Neck exam: Normal inspection, Full ROM. negative: Tenderness - Respiratory Respiratory exam: Normal lung sounds bilaterally. negative: Respiratory distress - Cardiovascular Cardiovascular Exam: Regular rate, Normal rhythm, Normal heart sounds - GI/Abdominal GI/Abdominal exam: Soft, Tenderness (There is mild tenderness just above his umbilicus and over the easily reducible R inguinal hernia. The abdomen is very soft.). negative: Rebound, Rigid - Extremities Extremities exam: Normal inspection, Full ROM, Normal capillary refill. negative: Tenderness - Back Back exam: Reports: Normal inspection - Neurological Neurological exam: Alert, Normal gait. negative: Abnormal gait, Motor sensory deficit - Psychiatric Psychiatric exam: negative: Anxious Course Vital Signs 12/18/18 12/18/18 06:57 07:23 Temperature 98.0 F Pulse Rate 54 L Respiratory 16 Rate Blood Pressure 160/79 Pulse Ox 97 - Reevaluation(s) Reevaluation #1: The patient is doing better at this time. His pain has resolved and his abdomen is very soft and nontender in all 4 quads. I did discuss the need for an upper and lower scope and the patient is scheduled to see Dr. Quesada next week at 3:00pm. We will discharge the patient and have him keep his appointment with Dr. Gomes this AM. 12/18/18 07:55 Medical Decision Making - Management Options MDM Management: Additional Work-up Planned (e.g. ADM/Transfer/OP Study) - Data Complexity MDM Data: Labs Ordered and/or Reviewed, Review and Summary of Old Record Discussed - Lab Data Result diagrams: 12/18/18 07:23 12/18/18 07:23 Lab Results 12/18/18 Range/Units 07:23 Lactic Acid Cancelled Disposition Disposition: Discharge Clinical Impression: Abdominal pain Qualifiers: Abdominal location: unspecified location Qualified Code(s): R10.9 - Unspecified abdominal pain Disposition: Home, Self-Care Condition: (2) Stable Instructions: Chronic Abdominal Pain (ED) Additional Instructions: Please continue your regular medicines and use Tylenol for pain. Please see Dr. Gomes this AM as planned and also Dr. Quesada next week at 3:00 on Tuesday to discuss the upper and lower scopes. Return to the ER for any worsening issues. Referrals: [facility] Specialty Clin[facility] [Provider Group] Forms: Patient Portal Access Time of Disposition: 07:58 Quality - Quality Measures Quality Measures: N/A - Blood Pressure Screening View Details: Yes Does Patient Have Any of the Following: Active Dx of HTN Blood Pressure Classification: Hypertensive Reading Systolic Measurement: 160 Diastolic Measurement: 79 Screening for High Blood Pressure: Patient Exclusion, Hx of HTN [G9744]
[2018-12-18 07:44] LABS: BLOOD UREA NITROGEN 13 mg/dL (8-23); CREATININE 0.8 mg/dL (0.7-1.2); EST GLOMERULAR FILTRATION RATE > 60 mL/min
[2018-12-18 07:45] LABS: LIPASE 43 U/L (13-60); TOTAL PROTEIN 6.8 g/dL (6.6-8.7)
[2018-12-18 07:47] LABS: GLUCOSE,RANDOM 97 mg/dL (74-109)
[2018-12-18 07:49] LABS: ALT/SGPT 26 U/L (<41)
[2018-12-18 07:50] LABS: ALBUMIN 4.5 g/dL (4.0-5.0); ALKALINE PHOSPHATASE 50 U/L (40-129); AST/SGOT 26 U/L (10.0-50.0); BILIRUBIN,DIRECT < 0.2 mg/dL (0-0.3)
== END 2018-12-18 08:08 | disposition home or self-care (01) ==
LOC: ER 06:50
DX: R10.33 Periumbilical pain (principal); R11.0 Nausea; I10 Essential (primary) hypertension; I25.2 Old myocardial infarction; Z87.891 Personal history of nicotine dependence
CPT/HCPCS: 80048; 80076; 81003; 83605; 83690; 85025; 96365; 99284

== ENCOUNTER 2018-12-25 07:17 | Day surgery (SDC) | payer MEDICARE, MEDICAID, SELFPAY ==
[~2018-12-25 07:17] MED LIST: ACETAMINOPHEN 1,000 MG/100 ML BTL IVPB ONE; CEFAZOLIN 2 Gram 2 GM/50 ML BAG IVPB ONE
[2018-12-25] MEDS ORDERED: **ER** KETAMINE HCL 500MG/10ML VIAL IV ONE (07:18)
[2018-12-25] MEDS ORDERED: PROPOFOL 10 MG/ML VIAL IV ONE (07:18)
[2018-12-25] MEDS ORDERED: LIDOCAINE 2% MDV (20MG/ML) 20ML VIAL IV ONE (07:18)
[2018-12-25] MEDS ORDERED: DEXAMETHASONE 4 MG/ML 1ML VIAL IVP ONE (07:18)
[2018-12-25] MEDS ORDERED: KETOROLAC 30 MG/ML VIAL IVP ONE (07:18)
[2018-12-25] MEDS ORDERED: ONDANSETRON HCL IV 4 MG/2 ML VIAL IVP ONE (07:18)
[2018-12-25] MEDS ORDERED: MIDAZOLAM HCL 2MG/2ML VIAL IV ONE (07:18)
[2018-12-25] MEDS ORDERED: RINGERS SOLUTION,LACTATED 1,000 ML IV ONE (09:29)
[2018-12-25] MEDS ORDERED: BUPIVACAINE 0.25% W/EPI MPF 30ML VIAL SQ ONE (09:52)
[2018-12-25] MEDS ORDERED: HYDROCODONE/APAP 5/325MG TABLET PO ONE (10:49)
--- NOTE | 2019-01-01 11:31 | Operative Note ---
DATE: 12/25/2018 PREOPERATIVE DIAGNOSIS: Reducible right inguinal hernia. POSTOPERATIVE DIAGNOSIS: Reducible direct right inguinal hernia. SURGEON: Fausto Gomes D.O. REFERRING PHYSICIAN: Jeffrey Walker D.O. OPERATION: Open right inguinal herniorrhaphy with mesh. ANESTHESIA: General. PROCEDURE: The patient is a 68-year-old male who was brought to the operating room and placed in the supine position. General anesthesia was administered per the Department of Anesthesia. The patient's right inguinal area was shaved of hair and prepped and draped in sterile fashion. A medical time-out was performed. He did receive preoperative antibiotic as well as DVT prophylaxis. He also underwent a block per the Department of Anesthesia. At this time, the oblique region was anesthetized with a total of 5 mL of 0.25% Sensorcaine with epinephrine. A 4 cm oblique incision was made. This was carried down through the Veronica's layer to the aponeurosis of the external oblique. This is cleaned off. A best was made with the scalpel blade and enlarged to the superficial inguinal ring with Metzenbaum scissors. Care was taken not to injure the underlying ilioinguinal nerve or the spermatic cord. At this time, superior and inferior flaps were developed and a Joey was placed on the spermatic cord. This was dissected free from the underlying transversalis fascia and retracted laterally with a Estephania drain. The floor was inspected and noted to contain a moderate- sized direct hernia. The floor was then embrocated in a Bassini-type fashion. The cord was inspected and noted to be free of any indirect hernia or cord lipoma. At this time, a right-sided Procrit mesh was obtained and this was placed in the floor, covering the entire myopectineal orifice with excellent overlap at the pubic tubercle. The stitches went to the level of the pubic tubercle, shelving portion of the inguinal ligament, and the internal oblique aponeurosis. At this time, the aponeurosis was closed over the cord with 2-0 Vicryl. The Veronica's layer was closed with 3-0 Vicryl, and the skin was closed with 4-0 Vicryl. The patient was taken to the recovery room in stable condition. FINDINGS AT THE TIME OF SURGERY: Right inguinal hernia, direct, repaired as above. CC: Dr. Jeffrey CHERRY
== END 2018-12-25 11:20 | disposition home or self-care (01) ==
LOC: SUR 07:17
PROVIDERS: ATTEND Surgery
DX: K40.90 Unilateral inguinal hernia, without obstruction or gangrene, not specified as recurrent (principal); I10 Essential (primary) hypertension; K21.9 Gastro-esophageal reflux disease without esophagitis; E78.00 Pure hypercholesterolemia, unspecified; R42 Dizziness and giddiness; I25.10 Atherosclerotic heart disease of native coronary artery without angina pectoris; I25.2 Old myocardial infarction; Z95.5 Presence of coronary angioplasty implant and graft
CPT/HCPCS: 49505; 00830; 64486; 76942; J1885; J2405; J0690; J7120

== ENCOUNTER 2019-01-15 08:51 | Emergency (ER) | payer MEDICARE, MEDICAID, SELFPAY ==
[2019-01-15] MEDS ORDERED: 0.9 % SODIUM CHLORIDE 1,000 ML BAG IV ONE (09:09)
[2019-01-15] MEDS ORDERED: MAGNESIUM HYDROXIDE/AL HYDROX 30 ML, LIDOCAINE VISC 2% 15ML 15 ML PO ONE ×2 (09:13)
[2019-01-15 09:17] LABS: ABSOLUTE NEUTROPHIL COUNT 4.53; BASO % 0.3 % (0-6); EOS % 2.8 % (0-6); GRAN % 62.6 % (47-80); HEMATOCRIT 50.3 % (42.0-52.0); HEMOGLOBIN 17.5 gm/dl (14.0-18.0); LYMPH % 23.8 % (16-45); MEAN CELL VOLUME 89.8 fl (81-97); MEAN CORPUSCULAR HEMOGLOBIN 31.3 pg (27-33); MEAN CORPUSCULAR HGB CONC 34.8 g/dl (32-36); MEAN PLATELET VOLUME 9.4 fl (7.4-10.4); MONO % 10.5 % (0-9); PLATELET COUNT 302 K/uL (130-400); RED CELL DISTRIBUTION WIDTH 12.3 % (11.5-14.5); WHITE BLOOD COUNT W/O DIFF 7.2 K/uL (4.2-12.2)
--- NOTE | 2019-01-15 09:19 | Emergency Department Record ---
History of Present Illness - General Chief Complaint: Abdominal Pain Stated Complaint: UPSET STOMACH/BACK PAIN Time Seen by Provider: 01/15/19 09:08 Source: Patient, RN notes reviewed [id number] Mode of Arrival: Ambulatory - History of Present Illness Initial Comments: hyperactive bowel sounds 3 days ago and 2 days ago epigastric abd pain and upper abd pain. No current abdominal pain and he had hernia surgery 3 weeks ago right side. Patient's right lower quad pain is better since her hernia surgery and this pain is epigastric abdominal pain and intermittent upper abd pain. Onset/Timin -: Days(s) Location: Periumbilical Improves With: Nothing Worsens With: Nothing Associated Symptoms: Nausea - Related Data Home Medications Medication Instructions Recorded Confirmed Last Taken Naproxen 500 mg PO BID 01/15/19 01/15/19 01/12/19 Previous Rx's Medication Instructions Recorded Hyoscyamine Sulfate [Levsin-Sl] 0.125 mg SL BID PRN #20 tab.subl 10/10/18 Polyethylene Glycol 3350 [Miralax] 1 packet PO DAILY #20 packet 10/10/18 Sucralfate 1 gm PO QIDACHS #40 tablet 01/15/19 Allergies Allergy/AdvReac Type Severity Reaction Status Date / Time Egg Derived Allergy Unknown HYPERSENSIT Verified 01/15/19 09:08 IVITY Travel Screening - Travel/Exposure Within Last 30 Days Have you traveled within the last 30 days?: No - Travel/Exposure Within Last Year Have you traveled outside the [place] in the last year?: No - Additonal Travel Details Have you been exposed to anyone with a communicable illness?: No - Travel Symptoms Symptom Screening: None Review of Systems Reviewed: No additional complaints except as noted below Constitutional: Reports: As per HPI. Denies: Chills, Fever, Malaise, Night sweats, Weakness, Weight change Eyes: Reports: As per HPI. Denies: Eye discharge, Eye pain, Photophobia, Vision change ENT: Reports: As per HPI. Denies: Congestion, Dental pain, Ear pain, Epistaxis, Hearing loss, Throat pain Respiratory: Reports: As per HPI. Denies: Cough, Dyspnea, Hemoptysis, Stridor, Wheezes Cardiovascular: Reports: As per HPI. Denies: Arrhythmia, Chest pain, Dyspnea on exertion, Edema, Murmurs, Orthopnea, Palpitations, Paroxysmal nocturnal dyspnea, Rheumatic Fever, Syncope Endocrine: Reports: As per HPI. Denies: Fatigue, Heat or cold intolerance, Polydipsia, Polyuria Gastrointestinal: Reports: As per HPI. Denies: Abdominal pain, Constipation, Diarrhea, Hematemesis, Hematochezia, Melena, Nausea, Vomiting Genitourinary: Reports: As per HPI. Denies: Dysuria, Frequency, Hematuria, Incontinence, Retention, Testicular pain, Testicular mass, Urgency Musculoskeletal: Reports: As per HPI. Denies: Arthralgia, Back pain, Gout, Joint swelling, Myalgia, Neck pain Skin: Reports: As per HPI. Denies: Bruising, Change in color, Change in hair/nails, Lesions, Pruritus, Rash Neurological: Reports: As per HPI. Denies: Abnormal gait, Confusion, Headache, Numbness, Paresthesias, Seizure, Tingling, Tremors, Vertigo, Weakness Psychiatric: Reports: As per HPI. Denies: Anxiety, Auditory hallucinations, Depression, Homicidal thoughts, Suicidal thoughts, Visual hallucinations Hematological/Lymphatic: Reports: As per HPI. Denies: Anemia, Blood Clots, Easy bleeding, Easy bruising, Swollen glands Past Medical History - SOCIAL HISTORY Smoking Status: Former smoker Alcohol Use: None Drug Use: None - RESPIRATORY Hx Respiratory Disorders: Yes Comment:: HX SINUS PROBLEMS - CARDIOVASCULAR Hx Cardio Disorders: Yes Hx Abnormal EKG: Yes Hx Coronary Artery Disease: Yes Hx Coronary Stent: Yes (X'S 2014) - NEURO Hx Neuro Disorders: No Hx Dizziness: Yes (OCCASS VERTIGO) - GI Hx GI Disorders: Yes Hx Abdominal Pain: Yes Hx Diverticulitis: Yes (HX OF) Hx Hiatal Hernia: Yes Hx Irritable Bowel: Yes (POSSIBLY) Hx Nausea/Vomiting: Yes (NO VOMITING) Hx Pancreatitis: Yes (HX OF) - Hx Genitourinary Disorders: No Hx Prostate Problems: Yes (ENLARGED) - ENDOCRINE Hx Endocrine Disorders: No - MUSCULOSKELETAL Hx Musculoskeletal Disorders: Yes - PSYCH Hx Psych Problems: No Hx Anxiety: Yes (CONSTANT SINCE HAVING HEALTH ISSUES) - HEMATOLOGY/ONCOLOGY Hx Hematology/Oncology Disorders: No Family Medical History Any Significant Family History?: No Family Hx Comment (NOT TO BE USED IN PLACE OF ITEMS BELOW): Mother w/brain tumor-benign Hx Cancer: Grandparents Hx Diabetes: Grandparents Hx Heart Disease: Brother/Sister Hx Resp Disorders: Grandparents Physical Exam - General General Appearance: Alert, Oriented x3, Cooperative, No acute distress - Head Head exam: Normal inspection - Eye Eye exam: Normal appearance, PERRL Pupils: Normal accommodation - ENT ENT exam: Normal exam, Mucous membranes moist, Normal external ear exam, Normal orophraynx, TM's normal bilaterally Ear exam: Normal external inspection. negative: External canal tenderness Nasal Exam: Normal inspection. negative: Discharge, Sinus tenderness Mouth exam: Normal external inspection, Tongue normal Teeth exam: Normal inspection. negative: Dental caries Throat exam: Normal inspection. negative: Tonsillar erythema, Tonsillar exudate - Neck Neck exam: Normal inspection, Full ROM. negative: Tenderness - Respiratory Respiratory exam: Normal lung sounds bilaterally. negative: Respiratory distress - Cardiovascular Cardiovascular Exam: Regular rate, Normal rhythm, Normal heart sounds - GI/Abdominal GI/Abdominal exam: Soft, Normal bowel sounds. negative: Tenderness - Rectal Rectal exam: Deferred - exam: Deferred - Extremities Extremities exam: Normal inspection, Full ROM, Normal capillary refill. negative: Tenderness - Back Back exam: Reports: Normal inspection, Full ROM. Denies: Muscle spasm, Rash noted, Tenderness - Neurological Neurological exam: Alert, Normal gait, Oriented X3, Reflexes normal - Psychiatric Psychiatric exam: Normal affect, Normal mood - Skin Skin exam: Dry, Intact, Normal color, Warm Course Vital Signs 01/15/19 08:57 Temperature 98.1 F Pulse Rate 75 Respiratory 18 Rate Blood Pressure 175/100 Pulse Ox 96 - Reevaluation(s) Reevaluation #1: reviewed CT of abd shows thickening of esophagus and gastric hay and EGD recommended 01/15/19 09:24 Reevaluation #2: feeling better 01/15/19 09:53 Medical Decision Making - Data Complexity MDM Data: Labs Ordered and/or Reviewed (No acute ) - Lab Data Result diagrams: 01/15/19 09:07 01/15/19 09:07 Disposition Clinical Impression: Gastritis Qualifiers: Gastritis type: unspecified gastritis Chronicity: acute Gastritis bleeding: without bleeding Qualified Code(s): K29.00 - Acute gastritis without bleeding Disposition: Home, Self-Care Condition: (1) Good Additional Instructions: follow up with Dr. Walker in 1-2 weeks increase omeprazole to twice a day keep appointment with GI today stop naprosyn Prescriptions: Sucralfate 1 gm PO QIDACHS #40 tablet Forms: Patient Portal Access Time of Disposition: 09:49 Quality - Quality Measures Quality Measures: N/A - Blood Pressure Screening Does Patient Have Any of the Following: No, Active Dx of HTN Blood Pressure Classification: Hypertensive Reading Systolic Measurement: 175 Diastolic Measurement: 100 Screening for High Blood Pressure: Patient Exclusion, Hx of HTN [G9744]
[2019-01-15 09:31] LABS: BLOOD UREA NITROGEN 15 mg/dL (8-23); CREATININE 0.8 mg/dL (0.7-1.2); EST GLOMERULAR FILTRATION RATE > 60 mL/min; LIPASE 39 U/L (13-60); TOTAL PROTEIN 7.2 g/dL (6.6-8.7)
[2019-01-15 09:33] LABS: GLUCOSE,RANDOM 101 mg/dL (74-109)
[2019-01-15 09:36] LABS: ALBUMIN 4.8 g/dL (4.0-5.0); ALKALINE PHOSPHATASE 58 U/L (40-129); ALT/SGPT 28 U/L (<41); AST/SGOT 22 U/L (10.0-50.0)
[2019-01-15 09:37] LABS: BILIRUBIN,DIRECT < 0.2 mg/dL (0-0.3)
[2019-01-15 09:49] LABS: URINE APPEARANCE CLEAR; URINE BILIRUBIN NEGATIVE (NEGATIVE); URINE BLOOD NEGATIVE (NEGATIVE); URINE COLOR YELLOW; URINE GLUCOSE (UA) NEGATIVE (NEGATIVE); URINE KETONE NEGATIVE (NEGATIVE); URINE LEUKOCYTE ESTERASE NEGATIVE (NEGATIVE); URINE NITRITE NEGATIVE (NEGATIVE); URINE PROTEIN NEGATIVE (NEGATIVE); URINE UROBILINOGEN 0.2 E.U./dL (0.20 - 1.00)
== END 2019-01-15 10:05 | disposition home or self-care (01) ==
LOC: ER 08:51
DX: K29.00 Acute gastritis without bleeding (principal); R11.0 Nausea; R42 Dizziness and giddiness; I10 Essential (primary) hypertension; Z87.891 Personal history of nicotine dependence
CPT/HCPCS: 80048; 80076; 81003; 83690; 85025; 99284; J7030

== ENCOUNTER 2019-01-30 10:47 | Emergency (ER) | payer MEDICARE, MEDICAID, SELFPAY ==
[2019-01-30] MEDS ORDERED: ASPIRIN 81 MG CHEWABLE TABLET PO ONE (11:16)
[2019-01-30] MEDS ORDERED: NITROGLYCERIN 0.4MG SL TABLET #25 BTL SL PRN (11:16)
--- NOTE | 2019-01-30 11:39 | Emergency Department Record ---
History of Present Illness - General Chief Complaint: Chest Pain Stated Complaint: NAUSEA/LT ARM PAIN Time Seen by Provider: 01/30/19 11:09 Source: Patient Mode of Arrival: Ambulatory Limitations: No limitations - History of Present Illness Initial Comments: pt developed nausea and then cp w radiation down his arm. he states it did not feel like when he had an mi. the pain has eased up. he has 1 stent. he had n butno sob and no diaphoresis MD Complaint: Chest pain Onset/Timin -: Hour(s) Pain Location: Substernal, Epigastric Pain Radiation: LUE Severity: Moderate Severity scale (1-10): 6 Quality: Aching, Dull, Heaviness Consistency: Constant, Intermittent, Now resolved Improves With: Nothing Worsens With: Nothing Context: New medications Anginal Symptoms: Nausea - Related Data Previous Rx's Medication Instructions Recorded Hyoscyamine Sulfate [Levsin-Sl] 0.125 mg SL BID PRN #20 tab.subl 10/10/18 Polyethylene Glycol 3350 [Miralax] 1 packet PO DAILY #20 packet 10/10/18 Sucralfate 1 gm PO QIDACHS #40 tablet 01/15/19 Allergies Allergy/AdvReac Type Severity Reaction Status Date / Time Egg Derived Allergy Unknown HYPERSENSIT Verified 01/30/19 10:56 IVITY Travel Screening - Travel/Exposure Within Last 30 Days Have you traveled within the last 30 days?: No - Travel/Exposure Within Last Year Have you traveled outside the [place] in the last year?: No - Additonal Travel Details Have you been exposed to anyone with a communicable illness?: No - Travel Symptoms Symptom Screening: None Past Medical History - SOCIAL HISTORY Smoking Status: Former smoker Alcohol Use: None Drug Use: None - RESPIRATORY Hx Respiratory Disorders: Yes Comment:: HX SINUS PROBLEMS - CARDIOVASCULAR Hx Cardio Disorders: Yes Hx Abnormal EKG: Yes Hx Cardiac Cath: Yes (2014) Hx Coronary Artery Disease: Yes Hx Coronary Stent: Yes (X'S 2014) - NEURO Hx Neuro Disorders: No Hx Dizziness: Yes (OCCASS VERTIGO) - GI Hx GI Disorders: Yes Hx Abdominal Pain: Yes Hx Diverticulitis: Yes (HX OF) Hx Hiatal Hernia: Yes Hx Irritable Bowel: Yes (POSSIBLY) Hx Nausea/Vomiting: Yes (NO VOMITING) Hx Pancreatitis: Yes (HX OF) - Hx Genitourinary Disorders: No Hx Prostate Problems: Yes (ENLARGED) - ENDOCRINE Hx Endocrine Disorders: No - MUSCULOSKELETAL Hx Musculoskeletal Disorders: Yes - PSYCH Hx Psych Problems: No Hx Anxiety: Yes (CONSTANT SINCE HAVING HEALTH ISSUES) - HEMATOLOGY/ONCOLOGY Hx Hematology/Oncology Disorders: No Family Medical History Any Significant Family History?: Yes Family Hx Comment (NOT TO BE USED IN PLACE OF ITEMS BELOW): Mother w/brain tumor-benign Hx Cancer: Grandparents Hx Diabetes: Grandparents Hx Heart Disease: Brother/Sister Hx Resp Disorders: Grandparents Physical Exam - General General Appearance: Alert, Oriented x3, Cooperative, Mild distress - Head Head exam: Normal inspection - Eye Eye exam: Normal appearance, PERRL, EOMI Pupils: Normal accommodation - ENT ENT exam: Normal exam, Mucous membranes moist, Normal external ear exam, Normal orophraynx Ear exam: Normal external inspection. negative: External canal tenderness Nasal Exam: Normal inspection. negative: Discharge, Sinus tenderness Mouth exam: Normal external inspection, Tongue normal Teeth exam: Normal inspection. negative: Dental caries Throat exam: Normal inspection. negative: Tonsillar erythema, Tonsillar exudate - Neck Neck exam: Normal inspection, Full ROM. negative: Tenderness - Respiratory Respiratory exam: Normal lung sounds bilaterally. negative: Respiratory distress - Cardiovascular Cardiovascular Exam: Regular rate, Normal rhythm, Normal heart sounds - GI/Abdominal GI/Abdominal exam: Soft, Normal bowel sounds. negative: Tenderness - Rectal Rectal exam: Deferred - exam: Deferred - Extremities Extremities exam: Normal inspection, Full ROM, Normal capillary refill. negative: Tenderness - Back Back exam: Reports: Normal inspection, Full ROM. Denies: Muscle spasm, Rash noted, Tenderness - Neurological Neurological exam: Alert, CN II-XII intact, Normal gait, Oriented X3 - Psychiatric Psychiatric exam: Normal affect, Normal mood - Skin Skin exam: Dry, Intact, Normal color, Warm Course Vital Signs 01/30/19 10:50 Temperature 97.8 F Pulse Rate 65 Respiratory 18 Rate Blood Pressure 152/92 Pulse Ox 97 Medical Decision Making - Lab Data Result diagrams: 01/30/19 10:57 01/30/19 10:57 Disposition Disposition: Discharge Clinical Impression: Chest pain Qualifiers: Chest pain type: unspecified Qualified Code(s): R07.9 - Chest pain, unspecified Disposition: Home, Self-Care Condition: (1) Good Instructions: Chest Pain (ED) Additional Instructions: follow up tomorrow with watershed manager. return sooner if worse Forms: Patient Portal Access Quality - Quality Measures Quality Measures: N/A - Blood Pressure Screening Does Patient Have Any of the Following: Active Dx of HTN Blood Pressure Classification: Hypertensive Reading Systolic Measurement: 152 Diastolic Measurement: 92 Screening for High Blood Pressure: Patient Exclusion, Hx of HTN [G9744]
[2019-01-30] MEDS ORDERED: NITROGLYCERIN 0.4MG SL TABLET #25 BTL SL ONE (11:43)
[2019-01-30 11:53] LABS: ABSOLUTE NEUTROPHIL COUNT 4.72; BASO % 0.3 % (0-6); EOS % 1.9 % (0-6); GRAN % 65.3 % (47-80); HEMATOCRIT 46.8 % (42.0-52.0); HEMOGLOBIN 16.1 gm/dl (14.0-18.0); LYMPH % 21.6 % (16-45); MEAN CELL VOLUME 90.3 fl (81-97); MEAN CORPUSCULAR HEMOGLOBIN 31.1 pg (27-33); MEAN CORPUSCULAR HGB CONC 34.4 g/dl (32-36); MEAN PLATELET VOLUME 9.9 fl (7.4-10.4); MONO % 10.9 % (0-9); PLATELET COUNT 278 K/uL (130-400); RED BLOOD COUNT 5.18 M/uL (4.40-5.70); RED CELL DISTRIBUTION WIDTH 12.2 % (11.5-14.5); WHITE BLOOD COUNT W/O DIFF 7.2 K/uL (4.2-12.2)
[2019-01-30 12:05] LABS: BLOOD UREA NITROGEN 11 mg/dL (8-23); CREATININE 0.7 mg/dL (0.7-1.2); EST GLOMERULAR FILTRATION RATE > 60 mL/min
[2019-01-30 12:06] LABS: TOTAL PROTEIN 6.7 g/dL (6.6-8.7)
[2019-01-30 12:08] LABS: GLUCOSE,RANDOM 92 mg/dL (74-109)
[2019-01-30 12:10] LABS: ALT/SGPT 26 U/L (<41); AST/SGOT 22 U/L (10.0-50.0)
[2019-01-30 12:11] LABS: ALBUMIN 4.5 g/dL (4.0-5.0); ALKALINE PHOSPHATASE 53 U/L (40-129); CREATINE PHOSPHOKINASE 135 U/L (39-308)
[2019-01-30 12:15] LABS: CKMB 2.4 ng/mL (<6.73)
--- NOTE | 2019-01-31 19:10 | RADIOLOGY REPORT ---
EXAM: CHEST 2 VIEWS HISTORY: SUDDEN ONSET OF CHEST PAIN TODAY. LEFT ARM NUMBNESS. TECHNIQUE: Upright PA and lateral views of the chest. COMPARISON: Two-view chest radiographic examination dated 06/18/2018. FINDINGS: The heart is not enlarged. No pulmonary venous hypertension. The thoracic aorta is atherosclerotic, unchanged. Mild biapical pleural and parenchymal scarring redemonstrated. The lungs and pleural spaces are otherwise clear. No acute osseous abnormality. Marginal endplate spurring is scattered throughout the thoracic spine with anterior osteophytes noted to be bridging. IMPRESSION: NO RADIOGRAPHIC EVIDENCE OF ACUTE CARDIOPULMONARY DISEASE WITHOUT CHANGE SINCE 06/18/2018. JOB NUMBER: [id number] [facility]
== END 2019-01-30 15:51 | disposition home or self-care (01) ==
LOC: ER 10:47
DX: R07.2 Precordial pain (principal); R11.0 Nausea; R10.13 Epigastric pain; I10 Essential (primary) hypertension; I25.2 Old myocardial infarction; Z87.891 Personal history of nicotine dependence
CPT/HCPCS: 71046; 80053; 82550; 82553; 84484; 85025; 85379; 93005; 93010; 99284

== ENCOUNTER 2019-02-01 16:21 | Emergency (ER) | payer MEDICARE, MEDICAID, SELFPAY ==
[2019-02-01] MEDS ORDERED: ONDANSETRON HCL IV 4 MG/2 ML VIAL IVP ONE (16:25)
[2019-02-01] MEDS ORDERED: 0.9 % SODIUM CHLORIDE 1000ML 1,000 ML IV ONE (16:25)
[2019-02-01] MEDS ORDERED: ASPIRIN 81 MG CHEWABLE TABLET PO ONE (16:33)
--- NOTE | 2019-02-01 16:34 | Emergency Department Record ---
History of Present Illness - General Chief complaint: Pain Stated complaint: ARM NUMBNESS/LEG PAIN/ABD PAIN Time Seen by Provider: 02/01/19 16:24 Source: Patient, Family Mode of Arrival: Wheelchair Limitations: No limitations - History of Present Illness Initial comments: 68 yo male presents not feeling well since Tuesday. He developed nausea, chest, and abdominal pain at that time. He was seen in the ED at [facility]. He reports the symptoms have continued. He saw Dr Walker his PCP this morning. He reports he was told it was likely GERD. He did schedule a stress test in the next week. He reports pain that goes through the back and into the arms as well. He also reports pain in his left upper leg. 5 weeks ago he had a right inguinal hernia repair without complication. No leg swelling. He has a history of CAD with one stent. The patient had chronic episodic abdominal pain. He has had 2 CT scans in 2019 September and November). Thickened esophagus noted. The last two days he reports is different with pain radiating up the chest into the shoulders and arms at times. 4 years ago he had an PA and has an LAD stent. 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 CXR was negative 2 days ago in the ED unchanged from 06/2018. He is scheduled in February for upper and lower endoscopy at [facility] for his recurrent abdominal discomfort. He had a CTA of the Chest 01/2018 that d emonstrated emphysema, no aneurysm or dissection. MD Complaint: Abdominal Pain, Extremity pain, Other (chest pain) Onset/Timin -: Days(s) Location: Bilateral History of Same: Yes -: Yes Myalgia Severity scale (1-10): 5 Quality: Aching Consistency: Constant Improves with: Nothing Worsens with: Nothing Associated Symptoms: Denies other symptoms - Related Data Previous Rx's Medication Instructions Recorded Hyoscyamine Sulfate [Levsin-Sl] 0.125 mg SL BID PRN #20 tab.subl 10/10/18 Polyethylene Glycol 3350 [Miralax] 1 packet PO DAILY #20 packet 10/10/18 Sucralfate 1 gm PO QIDACHS #40 tablet 01/15/19 Allergies Allergy/AdvReac Type Severity Reaction Status Date / Time Egg Derived Allergy Unknown HYPERSENSIT Verified 01/30/19 10:56 IVITY Travel Screening - Travel/Exposure Within Last 30 Days Have you traveled within the last 30 days?: No Review of Systems Constitutional: Denies: Chills, Fever, Malaise, Weakness Eyes: Denies: Eye discharge, Eye pain, Photophobia, Vision change ENT: Denies: Congestion, Throat pain Respiratory: Denies: Cough, Dyspnea, Hemoptysis, Stridor, Wheezes Cardiovascular: Reports: Chest pain. Denies: Dyspnea on exertion, Edema, Palpitations, Syncope Endocrine: Reports: Fatigue. Denies: Polydipsia, Polyuria Gastrointestinal: Reports: Abdominal pain, Nausea. Denies: Constipation, Diarrhea, Hematemesis, Hematochezia, Melena, Vomiting Genitourinary: Denies: Dysuria, Frequency, Hematuria Musculoskeletal: Reports: Back pain. Denies: Arthralgia, Joint swelling, Myalgia Skin: Denies: Bruising, Change in color, Rash Neurological: Reports: Headache. Denies: Confusion, Numbness, Tingling, Vertigo, Weakness Psychiatric: Denies: Anxiety Hematological/Lymphatic: Denies: Easy bleeding, Easy bruising Past Medical History - SOCIAL HISTORY Smoking Status: Former smoker - RESPIRATORY Hx Respiratory Disorders: Yes Comment:: HX SINUS PROBLEMS - CARDIOVASCULAR Hx Cardio Disorders: Yes Hx Abnormal EKG: Yes Hx Cardiac Cath: Yes (2014) Hx Coronary Artery Disease: Yes Hx Coronary Stent: Yes (X'S 2014) - NEURO Hx Neuro Disorders: No Hx Dizziness: Yes (OCCASS VERTIGO) - GI Hx GI Disorders: Yes Hx Abdominal Pain: Yes Hx Diverticulitis: Yes (HX OF) Hx Hiatal Hernia: Yes Hx Irritable Bowel: Yes (POSSIBLY) Hx Nausea/Vomiting: Yes (NO VOMITING) Hx Pancreatitis: Yes (HX OF) - Hx Genitourinary Disorders: No Hx Prostate Problems: Yes (ENLARGED) - ENDOCRINE Hx Endocrine Disorders: No - MUSCULOSKELETAL Hx Musculoskeletal Disorders: Yes - PSYCH Hx Psych Problems: No Hx Anxiety: Yes (CONSTANT SINCE HAVING HEALTH ISSUES) - HEMATOLOGY/ONCOLOGY Hx Hematology/Oncology Disorders: No Family Medical History Any Significant Family History?: Yes Family Hx Comment (NOT TO BE USED IN PLACE OF ITEMS BELOW): Mother w/brain tumor-benign Hx Cancer: Grandparents Hx Diabetes: Grandparents Hx Heart Disease: Brother/Sister Hx Resp Disorders: Grandparents Physical Exam - General General Appearance: Alert, Oriented x3, Cooperative, No acute distress Limitations: No limitations - Head Head exam: Atraumatic, Normocephalic, Normal inspection - Eye Eye exam: Normal appearance, PERRL. negative: Conjunctival injection, Periorbital swelling, Scleral icterus - ENT ENT exam: Normal exam, Mucous membranes moist Ear exam: Normal external inspection Nasal Exam: Normal inspection Mouth exam: Normal external inspection - Neck Neck exam: Normal inspection, Full ROM. negative: Lymphadenopathy, Tenderness - Respiratory Respiratory exam: Normal lung sounds bilaterally. negative: Accessory muscle use, Chest wall tenderness, Decreased breath sounds, Prolonged expiratory, Respiratory distress, Rhonchi, Stridor, Wheezes - Cardiovascular Cardiovascular Exam: Regular rate, Normal rhythm, Normal heart sounds Peripheral Pulses: 2+: Radial (R), Radial (L) - GI/Abdominal GI/Abdominal exam: Soft. negative: Distended, Guarding, Pulsatile mass, Rebound, Rigid, Tenderness - Rectal Rectal exam: Deferred - exam: Deferred - Extremities Extremities exam: Normal inspection, Full ROM. negative: Normal capillary refill, Pedal edema, Tenderness - Back Back exam: Denies: CVA tenderness (R), CVA tenderness (L) - Neurological Neurological exam: Alert, Oriented X3 - Psychiatric Psychiatric exam: Normal affect, Normal mood. negative: Agitated, Anxious - Skin Skin exam: Dry, Intact, Normal color, Warm Course Vital Signs 02/01/19 16:22 Temperature 98.5 F Pulse Rate 72 Respiratory 20 Rate Blood Pressure 159/107 Pulse Ox 97 - Reevaluation(s) Reevaluation #1: 02/01/19 16:36 EKG #1: 16:22 Rate: 71 Rhythm: sinus Partlow: left Intervals: normal ST segments: anterior lateral T wave changes similar to 01/30/19 02/01/19 17:22 Troponin is normal The labs results were reviewed There are no acute significant abnormalities of the CBC There are no acute significant abnormalities of the CMP 02/01/19 17:43 Dr Mc accepts the patient for chest pain evaluation. The patient was informed. I discussed with the patient that his GI work up in February will likely still be outpatient not impatient. He understands. 02/01/19 17:44 Aspirin given in the ED Medical Decision Making - Lab Data Result diagrams: 02/01/19 16:30 02/01/19 16:30 Disposition Disposition: Transfer Clinical Impression: Arm pain, left, Epigastric pain Chest pain Qualifiers: Chest pain type: unspecified Qualified Code(s): R07.9 - Chest pain, unspecified Disposition: Acute Care Hospital Transfer Transfer To: [facility] Reason For Transfer: Chest pain recurrent Accepting Physician: Alexandro Time Discussed w/Accepting Physician: 17:43 Condition: (2) Stable Forms: Patient Portal Access Time of Disposition: 17:44 Quality - Quality Measures Quality Measures: N/A - Blood Pressure Screening Does Patient Have Any of the Following: Active Dx of HTN Blood Pressure Classification: Hypertensive Reading Systolic Measurement: 159 Diastolic Measurement: 107 Screening for High Blood Pressure: Patient Exclusion, Hx of HTN [G9744]
[2019-02-01 16:45] LABS: ABSOLUTE NEUTROPHIL COUNT 4.45; BASO % 0.4 % (0-6); EOS % 2.3 % (0-6); GRAN % 59.6 % (47-80); HEMOGLOBIN 16.3 gm/dl (14.0-18.0); LYMPH % 26.3 % (16-45); MEAN CORPUSCULAR HEMOGLOBIN 31.9 pg (27-33); MEAN CORPUSCULAR HGB CONC 35.4 g/dl (32-36); MEAN PLATELET VOLUME 9.5 fl (7.4-10.4); MONO % 11.4 % (0-9); PLATELET COUNT 274 K/uL (130-400); RED BLOOD COUNT 5.11 M/uL (4.40-5.70); RED CELL DISTRIBUTION WIDTH 12.2 % (11.5-14.5); WHITE BLOOD COUNT W/O DIFF 7.5 K/uL (4.2-12.2)
[2019-02-01 16:53] LABS: BLOOD UREA NITROGEN 15 mg/dL (8-23); CREATININE 0.8 mg/dL (0.7-1.2); EST GLOMERULAR FILTRATION RATE > 60 mL/min; LIPASE 55 U/L (13-60); TOTAL PROTEIN 6.8 g/dL (6.6-8.7)
[2019-02-01 16:55] LABS: GLUCOSE,RANDOM 95 mg/dL (74-109)
[2019-02-01 16:58] LABS: ALB/GLOB RATIO 2.2 (1.1-1.8); ALBUMIN 4.7 g/dL (4.0-5.0); ALKALINE PHOSPHATASE 53 U/L (40-129); ALT/SGPT 22 U/L (<41); AST/SGOT 20 U/L (10.0-50.0)
== END 2019-02-01 18:56 | disposition short-term general hospital (02) ==
LOC: ER 16:21
DX: R07.89 Other chest pain (principal); R10.13 Epigastric pain; R11.0 Nausea; M79.671 Pain in right foot; I10 Essential (primary) hypertension; I25.10 Atherosclerotic heart disease of native coronary artery without angina pectoris; Z95.5 Presence of coronary angioplasty implant and graft; Z87.891 Personal history of nicotine dependence
CPT/HCPCS: 80053; 83690; 84484; 85025; 93005; 93010; 96374; 99285; J2405; J7030

== ENCOUNTER 2019-02-14 11:05 | Emergency (ER) | payer MEDICARE, MEDICAID, SELFPAY ==
--- NOTE | 2019-02-14 11:12 | Emergency Department Record ---
History of Present Illness - General Chief complaint: Pain Stated complaint: SORE Time Seen by Provider: 02/14/19 11:07 Source: Patient Mode of Arrival: Ambulatory Limitations: No limitations - History of Present Illness Initial comments: The patient is here due to diffuse muscle pain all over for 3 days. He basically is complaining of total body pain from his head to his feet. The patient states he is having muscle tenderness all over in all muscle groups. The patient was seen here 3 days ago for the same thing and had a neg workup. There has been no specific CP, SOB, JENNIFER, fever, cough or CANNON. The patient has had chronic AP recently and is scheduled for an EGD in 2 days here at [facility]. The patient denies any trauma or injury or any new medicines. Additionally the patient had a Nuclear Stress Test about 12 days ago that her reports was negative. MD Complaint: Extremity pain Onset/Timin -: Days(s) -: Yes Myalgia - Related Data Allergies Allergy/AdvReac Type Severity Reaction Status Date / Time Egg Derived Allergy Unknown HYPERSENSIT Verified 01/30/19 10:56 IVITY Review of Systems Constitutional: Denies: Chills, Fever Eyes: Denies: Eye discharge ENT: Denies: Congestion Respiratory: Denies: Cough, Dyspnea Cardiovascular: Denies: Arrhythmia Endocrine: Reports: Fatigue Gastrointestinal: Denies: Nausea Genitourinary: Denies: Dysuria Musculoskeletal: Denies: Arthralgia Skin: Denies: Bruising Past Medical History - SOCIAL HISTORY Smoking Status: Former smoker Alcohol Use: None - RESPIRATORY Hx Respiratory Disorders: Yes Comment:: HX SINUS PROBLEMS - CARDIOVASCULAR Hx Cardio Disorders: Yes Hx Abnormal EKG: Yes Hx Cardiac Cath: Yes (2014) Hx Heart Attack: Yes Hx Coronary Artery Disease: Yes Hx Coronary Stent: Yes (X'S 2014) - NEURO Hx Neuro Disorders: Yes Hx Dizziness: Yes (OCCASS VERTIGO) - GI Hx GI Disorders: Yes Hx Abdominal Pain: Yes Hx Diverticulitis: Yes (HX OF) Hx Reflux: Yes Hx Hiatal Hernia: Yes Hx Irritable Bowel: Yes (POSSIBLY) Hx Nausea/Vomiting: Yes (NO VOMITING) Hx Pancreatitis: Yes (HX OF) - Hx Genitourinary Disorders: Yes Hx Kidney Stones: Yes Hx Prostate Problems: Yes (ENLARGED) - ENDOCRINE Hx Endocrine Disorders: No Hx Diabetes: No Hx Thyroid Disease: No - MUSCULOSKELETAL Hx Musculoskeletal Disorders: Yes - PSYCH Hx Psych Problems: Yes Hx Anxiety: Yes (CONSTANT SINCE HAVING HEALTH ISSUES) - HEMATOLOGY/ONCOLOGY Hx Hematology/Oncology Disorders: No Family Medical History Family Hx Comment (NOT TO BE USED IN PLACE OF ITEMS BELOW): Mother w/brain tumor-benign Hx Cancer: Grandparents Hx Diabetes: Grandparents Hx Heart Disease: Brother/Sister Hx Resp Disorders: Grandparents Physical Exam - General General Appearance: Alert, Oriented x3, Cooperative, No acute distress - Head Head exam: Atraumatic, Normocephalic, Normal inspection - Eye Eye exam: Normal appearance, PERRL - Neck Neck exam: Normal inspection, Full ROM. negative: Tenderness - Respiratory Respiratory exam: Normal lung sounds bilaterally. negative: Respiratory distress - Cardiovascular Cardiovascular Exam: Regular rate, Normal rhythm, Normal heart sounds - GI/Abdominal GI/Abdominal exam: Soft, Normal bowel sounds. negative: Tenderness - Extremities Extremities exam: Normal inspection, Full ROM, Normal capillary refill, Tenderness (There is diffuse muscle tenderness to the patient's arms and legs. There is no swelling or erythema present.) - Back Back exam: Reports: Normal inspection. Denies: Vertebral tenderness - Neurological Neurological exam: Alert, Normal gait, Oriented X3. negative: Abnormal gait, Altered, Motor sensory deficit - Psychiatric Psychiatric exam: Flat affect - Skin Skin exam: negative: Rash Course - Reevaluation(s) Reevaluation #1: The patient is feeling completely better after the [employer]. He is pain free and ready for home. I did discuss the case with Dr. Walker and he is aware of the patient and agrees with the plan for discharge. 02/14/19 12:14 Medical Decision Making - Lab Data Result diagrams: 02/14/19 11:25 02/14/19 11:25 Disposition Disposition: Discharge Clinical Impression: Myalgia Disposition: Home, Self-Care Condition: (2) Stable Instructions: Musculoskeletal Pain (ED) Additional Instructions: Please take Tylenol for pain along with all your regular medicines. Please keep your appointment with Dr. Walker for tomorrow and return to the ER for any worsening symptoms. Forms: Patient Portal Access Time of Disposition: 12:14 Quality - Quality Measures Quality Measures: N/A - Blood Pressure Screening View Details: Yes Does Patient Have Any of the Following: No Blood Pressure Classification: Pre-Hypertensive BP Reading Systolic Measurement: 164 Diastolic Measurement: 81 Screening for High Blood Pressure: < Pre-Hypertensive BP, F/U Documented > [G8950] Pre-Hypertensive Follow-up Interventions: Referral to alternative/primary care provider.
[2019-02-14] MEDS ORDERED: ACETAMINOPHEN 1,000 MG/100 ML BTL IVPB ONE (11:21)
[2019-02-14 11:32] LABS: ABSOLUTE NEUTROPHIL COUNT 5.18; BASO % 0.1 % (0-6); EOS % 1.4 % (0-6); GRAN % 67.3 % (47-80); HEMATOCRIT 47.6 % (42.0-52.0); HEMOGLOBIN 16.6 gm/dl (14.0-18.0); LYMPH % 22.5 % (16-45); MEAN CELL VOLUME 89.8 fl (81-97); MEAN CORPUSCULAR HEMOGLOBIN 31.3 pg (27-33); MEAN CORPUSCULAR HGB CONC 34.9 g/dl (32-36); MEAN PLATELET VOLUME 9.3 fl (7.4-10.4); MONO % 8.7 % (0-9); PLATELET COUNT 249 K/uL (130-400); RED CELL DISTRIBUTION WIDTH 12.3 % (11.5-14.5); WHITE BLOOD COUNT W/O DIFF 7.7 K/uL (4.2-12.2)
[2019-02-14 11:43] LABS: BLOOD UREA NITROGEN 14 mg/dL (8-23); CREATININE 0.8 mg/dL (0.7-1.2); EST GLOMERULAR FILTRATION RATE > 60 mL/min
[2019-02-14 11:44] LABS: TOTAL PROTEIN 6.9 g/dL (6.6-8.7)
[2019-02-14 11:46] LABS: GLUCOSE,RANDOM 90 mg/dL (74-109)
[2019-02-14 11:48] LABS: ALT/SGPT 18 U/L (<41)
[2019-02-14 11:49] LABS: ALBUMIN 4.8 g/dL (4.0-5.0); ALKALINE PHOSPHATASE 58 U/L (40-129); AST/SGOT 19 U/L (10.0-50.0)
[2019-02-14 11:52] LABS: BILIRUBIN,DIRECT < 0.2 mg/dL (0-0.3)
[2019-02-14 12:03] LABS: C-REACTIVE PROTEIN 0.08 mg/dL (<0.5)
== END 2019-02-14 12:25 | disposition home or self-care (01) ==
LOC: ER 11:05
DX: M79.18 Myalgia, other site (principal); R10.9 Unspecified abdominal pain; G89.29 Other chronic pain; I10 Essential (primary) hypertension; Z87.891 Personal history of nicotine dependence
CPT/HCPCS: 80048; 80076; 82550; 85025; 85651; 86140; 96365; 99284

== ENCOUNTER 2019-02-16 06:25 | Day surgery (SDC) | payer MEDICARE, MEDICAID, SELFPAY ==
[2019-02-16] MEDS ORDERED: FENTANYL PF 100MCG/2ML VIAL IV ONE (06:26)
[2019-02-16] MEDS ORDERED: PROPOFOL 10 MG/ML VIAL IV ONE (06:26)
[2019-02-16] MEDS ORDERED: LIDOCAINE 2% MDV (20MG/ML) 20ML VIAL IV ONE (06:26)
--- NOTE | 2019-02-20 08:20 | Operative Note ---
SURGEON: Sudha Wilde MD OPERATION: ESOPHAGOGASTRODUODENOSCOPY. INDICATIONS: This is a 68-year-old male with history of epigastric pain who presented for esophagogastroduodenoscopy. POSTOPERATIVE DIAGNOSES: 1. Normal esophagus. 2. Diffuse gastritis. 3. Normal duodenum. ANESTHESIA: Sedation is per Anesthesia. Pulse oximetry was monitored throughout the procedure to maintain O2 saturation of 90% or greater. Supplemental oxygen was administered via nasal cannula. Cardiac and vital signs were monitored throughout the duration of the procedure, and they were stable. The procedure of esophagogastroduodenoscopy and risks and benefits of the procedure, including the risk of bleeding and perforation, among others, were explained to the patient who voiced understanding and agreed to have the procedure done. Physical examination was performed, and the patient was found stable for sedation. PROCEDURE: The patient was placed in the left lateral position. Sedation was initiated. A plastic bite block was inserted into the oral cavity. The Olympus [id number] gastroscope was introduced into the oral cavity and advanced to the proximal esophagus without difficulty. The esophageal mucosa was carefully examined upon introduction of the gastroscope. The proximal and mid and distal esophageal mucosa appeared normal. The gastroscope was then advanced into the stomach, and surveillance of the stomach revealed diffuse erythema along the gastric body and antrum but no ulcers were noted. The gastroscope was then advanced to the descending duodenum without difficulty. The duodenal bulb and descending duodenum appeared normal. The gastroscope was then withdrawn into the stomach and retroflexion was performed. There were no other lesions noted. The gastroscope was then straightened and withdrawn while carefully examining the gastric and esophageal mucosa. No other lesions noted. Multiple gastric and duodenal biopsies were obtained. The patient remained with stable vital signs and was transferred to the recovery room. RECOMMENDATIONS: 1. The patient is to continue on his proton pump inhibitors. 2. We will follow up on the biopsies and I will see him back in the office as needed. Thank you for allowing me to participate in the care of your patient. JO ANN
== END 2019-02-16 08:20 | disposition home or self-care (01) ==
LOC: HOP 06:25
PROVIDERS: ATTEND Internal Medicine Gastroenterology
DX: R10.13 Epigastric pain (principal); K29.70 Gastritis, unspecified, without bleeding; I10 Essential (primary) hypertension; E78.00 Pure hypercholesterolemia, unspecified; K21.9 Gastro-esophageal reflux disease without esophagitis; R42 Dizziness and giddiness

== ENCOUNTER 2019-02-28 07:40 | Emergency (ER) | payer MEDICARE, MEDICAID, SELFPAY ==
[2019-02-28] MEDS ORDERED: PANTOPRAZOLE SODIUM IV 40 MG VIAL IVP ONE (07:46)
[2019-02-28] MEDS ORDERED: ONDANSETRON HCL IV 4 MG/2 ML VIAL IVP ONE (07:48)
--- NOTE | 2019-02-28 07:53 | Emergency Department Record ---
History of Present Illness - General Chief Complaint: Abdominal Pain Stated Complaint: ABD PAIN, CANT STAY AWAKE Time Seen by Provider: 02/28/19 07:44 Source: Patient Mode of Arrival: Ambulatory Limitations: No limitations - History of Present Illness Initial Comments: 68 yo male presents with recurrent epigastric pain. The patient has been having similar frequent episodes for over a year. He reports he has had CT scans, resent upper endoscopy 2 weeks ago, recent stress test 3 weeks ago for this ongoing issue. The symptoms are a burning like pain in the epigastrium that radiates to both upper quadrants and the chest. He states he has mild nausea but no vomiting. The symptoms are nearly constant even since his scope. No cough. No fever. He is on omeprazole and carafate but they only provided mild relief. He states he has stopped Motrin. He had all over body aches recently that are not gone but are improved since stopping his Lipitor. PCP Kelly. HEADLEY Complaint: Abdominal pain -: Hour(s) Location: Epigastric Radiation: Chest, Epigastric Migration to: Epigastric Severity: Moderate Quality: Aching, Cramping Consistency: Constant Improves With: Nothing Worsens With: Nothing Associated Symptoms: Anorexia, Nausea - Related Data Home Medications Medication Instructions Recorded Confirmed Last Taken Sucralfate 1 gm PO DAILY 02/28/19 02/28/19 Unknown Allergies Allergy/AdvReac Type Severity Reaction Status Date / Time Egg Derived Allergy Unknown HYPERSENSIT Verified 01/30/19 10:56 IVITY Review of Systems Constitutional: Denies: Chills, Fever, Malaise, Weakness Eyes: Denies: Eye discharge, Vision change ENT: Denies: Congestion, Throat pain Respiratory: Denies: Cough, Dyspnea Cardiovascular: Denies: Chest pain, Syncope Endocrine: Denies: Fatigue Gastrointestinal: Reports: Abdominal pain, Nausea. Denies: Diarrhea, Vomiting Genitourinary: Denies: Dysuria, Frequency, Hematuria Musculoskeletal: Denies: Arthralgia, Back pain, Joint swelling, Myalgia, Neck pain Skin: Denies: Bruising, Change in color, Rash Neurological: Denies: Confusion, Headache Psychiatric: Denies: Anxiety Hematological/Lymphatic: Denies: Easy bleeding, Easy bruising Past Medical History - SOCIAL HISTORY Smoking Status: Former smoker - RESPIRATORY Hx Respiratory Disorders: Yes Comment:: HX SINUS PROBLEMS - CARDIOVASCULAR Hx Cardio Disorders: Yes Hx Abnormal EKG: Yes Hx Cardiac Cath: Yes (2015) Hx Heart Attack: Yes Hx Coronary Artery Disease: Yes Hx Coronary Stent: Yes (X'S 1 2014) - NEURO Hx Neuro Disorders: Yes Hx Dizziness: Yes (OCCASS VERTIGO) - GI Hx GI Disorders: Yes Hx Abdominal Pain: Yes Hx Diverticulitis: Yes (HX OF) Hx Reflux: Yes Hx Hiatal Hernia: Yes Hx Irritable Bowel: Yes (POSSIBLY) Hx Nausea/Vomiting: Yes (NO VOMITING) Hx Pancreatitis: Yes (HX OF) - Hx Genitourinary Disorders: Yes Hx Kidney Stones: Yes Hx Prostate Problems: Yes (ENLARGED) - ENDOCRINE Hx Endocrine Disorders: No Hx Diabetes: No Hx Thyroid Disease: No - MUSCULOSKELETAL Hx Musculoskeletal Disorders: Yes - PSYCH Hx Psych Problems: Yes Hx Anxiety: Yes (CONSTANT SINCE HAVING HEALTH ISSUES) - HEMATOLOGY/ONCOLOGY Hx Hematology/Oncology Disorders: No Family Medical History Family Hx Comment (NOT TO BE USED IN PLACE OF ITEMS BELOW): Mother w/brain tumor-benign Hx Cancer: Grandparents Hx Diabetes: Grandparents Hx Heart Disease: Brother/Sister Hx Resp Disorders: Grandparents Physical Exam - General General Appearance: Alert, Oriented x3, Cooperative, No acute distress Limitations: No limitations - Head Head exam: Atraumatic, Normal inspection - Eye Eye exam: Normal appearance. negative: Conjunctival injection - ENT ENT exam: Normal exam Ear exam: Normal external inspection Nasal Exam: Normal inspection Mouth exam: Normal external inspection - Neck Neck exam: Normal inspection - Respiratory Respiratory exam: Normal lung sounds bilaterally. negative: Accessory muscle use, Decreased breath sounds, Prolonged expiratory, Respiratory distress, Rhonchi, Stridor, Wheezes - Cardiovascular Cardiovascular Exam: Regular rate, Normal rhythm, Normal heart sounds Peripheral Pulses: 2+: Radial (R), Radial (L) - GI/Abdominal GI/Abdominal exam: Soft, Tenderness (soft but tender in the epigastric area). negative: Distended, Guarding, Rebound, Rigid - Rectal Rectal exam: Deferred - exam: Deferred - Extremities Extremities exam: Normal inspection - Back Back exam: Denies: CVA tenderness (R), CVA tenderness (L) - Neurological Neurological exam: Alert, Oriented X3 - Psychiatric Psychiatric exam: Normal affect, Normal mood. negative: Agitated, Anxious - Skin Skin exam: Dry, Intact, Normal color, Warm Course - Reevaluation(s) Reevaluation #1: 02/28/19 07:53 EGD 02/16/19 Normal esophagus, diffuse gastritis, normal duodenum EKG #1: 07:47 Rate: 53 Rhythm: sinus [place]: left Intervals: normal ST segments: lateral T wave abnormalities Prior: 02/01/19 02/28/19 07:58 Multiple old EKG's dating back to 08/22/18 with similar lateral T wave changes No aspirin given at this time due to his significant history of gastritis and risk for bleeding 02/28/19 08:02 [facility] records reviewed. Negative stress test February 02. 02/28/19 08:12 02/28/19 08:30 The labs were reviewed No acute changes on the CBC, CMP or troponin in spite of constant symptoms. No anemia to suggest bleeding. Normal troponin with constant symptoms, reproducible pain, no changes from EKG going back to 2015, and a normal stress test less than one month ago for similar symptoms. 02/28/19 09:17 The GI cocktail improved his symptoms. He states they never completely go away over many weeks. 02/28/19 11:38 The repeat troponin is normal/negative DC home with plan for close follow up with his GI and PCP for ongoing chronic epigastric pain Medical Decision Making - Lab Data Result diagrams: 02/28/19 07:50 02/28/19 07:50 Disposition Disposition: Discharge Clinical Impression: Epigastric pain Gastritis Qualifiers: Gastritis type: unspecified gastritis Chronicity: chronic Gastritis bleeding: without bleeding Qualified Code(s): K29.50 - Unspecified chronic gastritis without bleeding Disposition: Home, Self-Care Condition: (1) Good Instructions: Abdominal Pain (ED) Additional Instructions: Call your doctor for the next available follow up appointment Review this ER visit and the tests performed with your family doctor Return to the ER for a recheck if worse, any new concerns or questions Take the prescriptions provided as directed Follow up with Dr Wilde as scheduled Referrals: CAROLINA WILDE [MEDICAL DOCTOR] - Forms: Patient Portal Access Time of Disposition: 11:39 Quality - Quality Measures Quality Measures: N/A - Blood Pressure Screening Does Patient Have Any of the Following: Active Dx of HTN Blood Pressure Classification: Hypertensive Reading Systolic Measurement: 141 Diastolic Measurement: 73 Screening for High Blood Pressure: Patient Exclusion, Hx of HTN [G9744]
[2019-02-28 08:01] LABS: ABSOLUTE NEUTROPHIL COUNT 6.12; BASO % 0.3 % (0-6); EOS % 1.6 % (0-6); GRAN % 61.1 % (47-80); HEMATOCRIT 49.4 % (42.0-52.0); HEMOGLOBIN 17.1 gm/dl (14.0-18.0); LYMPH % 27.6 % (16-45); MEAN CELL VOLUME 91.3 fl (81-97); MEAN CORPUSCULAR HEMOGLOBIN 31.6 pg (27-33); MEAN CORPUSCULAR HGB CONC 34.6 g/dl (32-36); MEAN PLATELET VOLUME 9.3 fl (7.4-10.4); MONO % 9.4 % (0-9); PLATELET COUNT 314 K/uL (130-400); RED BLOOD COUNT 5.41 M/uL (4.40-5.70); RED CELL DISTRIBUTION WIDTH 12.7 % (11.5-14.5)
[2019-02-28] MEDS ORDERED: MAGNESIUM HYDROXIDE/AL HYDROX 30 ML, LIDOCAINE VISC 2% 15ML 15 ML PO ONE ×2 (08:09)
[2019-02-28 08:18] LABS: BLOOD UREA NITROGEN 22 mg/dL (8-23)
[2019-02-28 08:19] LABS: CREATININE 0.8 mg/dL (0.7-1.2); EST GLOMERULAR FILTRATION RATE > 60 mL/min; LIPASE 69 U/L (13-60); TOTAL PROTEIN 6.6 g/dL (6.6-8.7)
[2019-02-28 08:21] LABS: GLUCOSE,RANDOM 92 mg/dL (74-109)
[2019-02-28 08:24] LABS: ALBUMIN 4.4 g/dL (4.0-5.0); ALKALINE PHOSPHATASE 50 U/L (40-129); ALT/SGPT 39 U/L (<41); AST/SGOT 20 U/L (10.0-50.0)
== END 2019-02-28 12:24 | disposition home or self-care (01) ==
LOC: ER 07:40
DX: K29.50 Unspecified chronic gastritis without bleeding (principal); R10.13 Epigastric pain; R07.9 Chest pain, unspecified; R11.0 Nausea; I10 Essential (primary) hypertension; Z87.891 Personal history of nicotine dependence
CPT/HCPCS: 99284 ×2; 96374; 96375; 83690; 85025; 80053; 84484; 93005; 93010; J2405; C9113